=== PATIENT | male | born 1980 | race Caucasian/White ===

== ENCOUNTER 2019-05-29 08:01 | Emergency (ER) | payer OTHER, BC, SELFPAY ==
[2019-05-29 08:09] VITALS: PULSE 115; RESP 18; TEMP 36.8; O2SAT 96; BMI 29.8
--- NOTE | 2019-05-29 08:26 | ED_ITS ---
HPI - GI Bleed General Chief complaint: GI Bleed Stated complaint: Blood in stool Time Seen by Provider: 05/29/19 08:08 Source: patient Mode of arrival: ambulatory Limitations: no limitations History of Present Illness HPI Narrative: Patient comes emergency department complaining of red blood per rectum for his last 3 bowel movements. Patient states that yesterday, he felt the urge to defecate, and when he looked in the bowl of the toilet, he noticed a ?clump? of dark red blood. Patient states that he also noticed some blood dripping out just afterward into the toilet bowl. Patient states that there was no bleeding in between bowel movements, but that the next time he had a bowel movement, he passed another set of clots and blood. Patient states that this morning, he felt the urge to have a bowel movement but only blood came. He states that this time, it was mixed with mucus and it was a smaller amount than last night. Patient states he has never had anything like this before. He states he has had some vague, crampy low abdominal pain but otherwise has been feeling well. He does note that he has been constipated for quite some time, and that his stools have been hard in consistency. Patient states he takes stool softeners and also he feels he gets plenty of fruits and vegetables to eat. Patient denies any anticoagulation, and has no bleeding disorders that he knows of. He has not been bruising more easily recently. Patient denies any nausea or vomiting. No diarrhea. He has not had any fevers. He is not known to have diverticulosis. No history of colon cancer. No surgeries on his abdomen. No recent trauma. No pain with defecation. No blood in his urine. No melena. No known disorders of the patient's colon. Patient has never had a diagnosis of hemorrhoids. No other complaints at this time. Patient states he is feeling ?fine? right now. Related Data Home Medications Medication Instructions Recorded Confirmed buprenorphine-naloxone [Suboxone] 1 film BUCCAL BID 05/29/19 05/29/19 bupropion HCl 300 mg PO QAM 05/29/19 05/29/19 hydrochlorothiazide 1 tab PO DAILY 05/29/19 05/29/19 lovastatin 1 tab PO DAILY 05/29/19 05/29/19 pantoprazole 1 tab PO DAILY 05/29/19 05/29/19 testosterone cypionate 1 dose IM DIRECTED 05/29/19 05/29/19 Allergies Allergy/AdvReac Type Severity Reaction Status Date / Time lorazepam [From Ativan] Allergy Verified 05/29/19 08:09 Review of Systems Constitutional Denies chills, Denies fever(s), Denies lethargy and Denies weakness Eyes Denies change in vision, Denies eye discharge, Denies irritation and Denies loss of vision ENT Ears, Nose, Mouth, and Throat: Denies change in voice, Denies neck pain and Denies sore throat Cardiovascular Denies chest pain, Denies irregular heart rhythm, Denies lightheadedness, Denies palpitations, Denies dyspnea, Denies dyspnea on exertion and Denies orthopnea Respiratory Denies cough, Denies dyspnea, Denies dyspnea on exertion and Denies wheezing Gastrointestinal Gastrointestinal: Denies abdominal pain, Denies change in bowel habits, Denies diarrhea, Denies nausea and Denies vomiting Comments: Rectal bleeding Genitourinary Denies hematuria, Denies flank pain, Denies urinary incontinence and Denies urinary urgency Musculoskeletal Denies neck pain Integumentary/Breasts Denies pruritus, Denies erythema, Denies rash and Denies wounds Neurologic Denies confusion, Denies loss of vision and Denies weakness Psychiatric Denies anxiety, Denies confusion, Denies depression, Denies homicidal ideation and Denies suicidal ideation Endocrine Denies palpitations Hematologic/Lymphatic Denies easy bruising Allergic/Immunologic Denies wheezing PFSH Medical History HTN (hypertension) (Acute) Surgical History No pertinent past surgical history (Acute) Social History Smoking Status: Never smoker Social History Smoking Status: Never smoker Exam Initial Vital Signs Initial Vital Signs: Vital Signs Temperature 98.2 F 05/29/19 08:09 Pulse Rate 115 H 05/29/19 08:09 Respiratory Rate 18 05/29/19 08:09 Pulse Oximetry 96 05/29/19 08:09 Const General: cooperative and well developed Nutritional Appearance: well nourished Orientation: alert, awake, oriented x3 and not confused [facility] Head: normocephalic and atraumatic Ears: external ears normal Nose: external nose normal and No nasal discharge Face and sinus: face symmetric and No dry mucous membranes Mouth: oral mucosae normal and moist mucous membranes Teeth and gingiva: dentition normal Eyes General: appearance normal, both eyes and all related structures Eyelids: eyelids normal Conjunctivae: conjunctivae normal Sclera: sclerae normal Pupils: PERRL EOM: EOM intact bilaterally Neck Neck: normal visual inspection, trachea midline, No lymphadenopathy, No midline deformity and No JVD Lymphatic: No lymphedema Chest Chest: normal inspection of the chest Resp Effort & Inspection: normal respiratory effort, able to speak in complete sentences, no respiratory distress and no use of accessory muscles Auscultation: clear to auscultation bilaterally, no rales, no rhonchi and no wheezes Cardio Rate: regular rate Rhythm: regular rhythm Heart Sounds: no click, no gallops, no murmurs and no rubs Pulses: normal peripheral pulses GI Inspection: non-distended Palpation: soft, no hepatosplenomegaly, No guarding, No pulsatile mass and tender (Mild, diffuse lower abdomen) Rectal Exam: visual inspection normal and normal sphincter tone Other: No stool is obtained on rectal exam--only a slight bit of mucus material with blood tinging, which tests strongly guaiac positive. Back/Spine/Pelvis Back: No CVA tenderness Cervical Spine: cervical ROM normal and No pain with cervical ROM Thoracic/Lumbar Spine: thoracic and lumbar spine normal to inspection Skin General: no rashes or lesions noted, No jaundice and No petechiae Neuro General: alert, oriented x3, gait normal and no focal motor deficits Speech: speech normal Extrem General: full ROM, no clubbing, cyanosis or edema, no pedal edema and no calf tenderness Psych Appearance: well kempt Mental Status: mental status grossly normal Attitude: cooperative Thought Content: normal and suicidality Judgment: judgment good Course Course Narrative: Patient was worked up with laboratory studies and CT scan in the emergency department. Laboratory studies were unremarkable, other than a moderately elevated glucose, but the patient's CT scan did show a section of the descending colon with thickened bowel wall, concerning for a colonic mass. I did discuss this finding with Dr. Man, who is on-call for surgery, and he recommended that the patient follow up urgently with Surgery Clinic this week, preferably before the holiday. We did call the surgery clinic and set up an appointment for the patient to see Dr. Huff this afternoon at 1515. I have discussed this with the patient, and have urged him not to miss this appointment. He has been informed of his findings and the potential implications. Patient is agreeable to the plan. We have discussed the usual indications for return to the emergency department. Orders Ordered: ED Orders 05/29/19 08:35 Complete Blood Count AUTO DIFF Stat Comprehensive Metabolic Panel Stat 05/29/19 10:20 CT abdomen pelvis w con Stat Vital Signs - 8 hr 05/29/19 08:09 05/29/19 10:18 Temperature 98.2 F Pulse Rate 115 H 92 H Respiratory Rate 18 16 Blood Pressure [Left Arm] 120/80 Pulse Oximetry 96 98 MDM - GI Bleed Medical Records Attestation: I reviewed the patient's medical records. Lab Data Attestation: I reviewed the patient's lab results. Result diagrams: 05/29/19 08:35 05/29/19 08:35 Lab Results 05/29/19 05/29/19 Range/Units 08:35 08:35 WBC 9.6 (4.5-11.0) X10^3/uL RBC 5.26 (4.5-5.9) X10^6/uL Hgb 17.0 (13.5-17.5) g/dL Hct 48.5 (41-53) % MCV 92.2 (80-100) fL MCH 32.3 (26-34) PG MCHC 35.1 (30-36) % RDW 12.7 (11.6-14.8) % Plt Count 238 (150-400) X10^3/uL Neut % (Auto) 68.3 (50-75) % Lymph % (Auto) 21.1 L (25-40) % [place] % (Auto) 8.7 (3-14) % Eos % (Auto) 1.4 L (2-4) % Baso % (Auto) 0.5 (0-2) % Neut # (Auto) 6600 (2175-6431) /uL Lymph # (Auto) 2000 (7988-9696) /uL [place] # (Auto) 800 (0-900) /uL Eos # (Auto) 100 (0-450) /uL Baso # (Auto) 100 (0-100) /uL Sodium 138 (137-145) mmol/L Potassium 3.8 (3.4-5.1) mmol/L Chloride 98 (98-107) mmol/L Carbon Dioxide 28 (22-32) mmol/L BUN 19 (9-20) mg/dL Creatinine 1.00 (0.66-1.25) mg/dL Estimated GFR > 60.0 (>60) mL/min BUN/Creatinine Ratio 19.0 (6-22) Glucose 176 H (70-100) mg/dL Calcium 9.2 (8.4-10.2) mg/dL Total Bilirubin 0.8 (0.2-1.3) mg/dL AST 38 (17-59) IU/L ALT 33 (21-72) IU/L Alkaline Phosphatase 103 (38-126) U/L Total Protein 7.8 (6.3-8.2) g/dL Albumin 4.7 (3.5-5.0) g/dL Globulin 3.1 (1.7-4.1) g/dL Albumin/Globulin Ratio 1.5 (1.0-2.8) Imaging Data CT scan - abdomen: Radiologist's impression: PROCEDURE: CT ABDOMEN PELVIS W CON INDICATIONS: lower GI bleeding/clotting TECHNIQUE: After the administration of oral and intravenous contrast, 5 mm thick sections acquired from the diaphragms to the symphysis. 5 mm thick coronal and sagittal reformats were performed. For radiation dose reduction, the following was used: automated exposure control, adjustment of mA and/or kV according to patient size. COMPARISON: None. FINDINGS: Image quality: Excellent. ABDOMEN: Lung bases: Lung bases are clear. Heart size is normal. Solid organs: The liver is normal in size and demonstrates mild decreased density when compared to the spleen. No focal liver lesions are evident. There is no intrahepatic biliary dilatation. However, the common bile duct measures 8 mm in diameter near the head of the pancreas. The spleen, adrenals, pancreas, and kidneys are unrem arkable. There is no hydronephrosis. Peritoneum and bowel: The stomach is unremarkable. The small bowel loops are nondilated. Moderate residual stool is seen within the colon. The appendix is well- visualized and normal. Mild prominence of the wall of the distal colon probably is related to incomplete distention. There is wall thickening identified involving the mid aspect of the descending colon with minimal edema within the adjacent soft tissues (image 37, series 2). The colon and distal to this area of circumferential wall thickening is decompressed. No free fluid, loculated fluid collection or free air is identified. Nodes and vessels: No retroperitoneal or mesenteric adenopathy. Aorta and inferior vena cava are normal in caliber. Bones: No acute fracture or suspicious osseous lesion is evident. PELVIS: Genitourinary: Bladder wall thickness is normal. Miscellaneous: No inguinal hernias or adenopathy. Bones: No suspicious bony lesions. No acute pelvic fracture is evident. Moderate degenerative changes are evident involving the bilateral hips (left greater than right). IMPRESSION: 1. Circumferential wall thickening of the mid descending colon is suspicious for a colonic mass, particularly given the patient's history of rectal bleeding and the large amount of stool proximal to this lesion and lack of intraluminal stool distal to this lesion. Colonoscopy is recommended for further evaluation. 2. No bowel obstruction. 3. Enlargement of the common bile duct is unusual for the patient's age. Please consider MRCP for further evaluation. 4. Moderate degenerative changes of the bilateral hips. 5. Possible mild hepatic steatosis. Dictated by: Toby Dos Santos M.D. on 05/29/2019 at 9:37 Approved by: Toby Dos Santos M.D. on 05/29/2019 at 10:05 Discharge Plan Departure Patient Disposition: Home Clinical Impression: Acute lower gastrointestinal bleeding, Colonic mass Instructions: Gastrointestinal Bleeding Activity Restrictions/Additional Instructions: Your labs look good, overall. Your CT scan showed a thickened area of bowel wall in the latter part of your large intestine, which is causing some mild backup of stool. This is concerning for potential colon cancer, and as such, your case has been discussed with the surgeon ergonomic specialist, who has recommended that he be seen this week in their clinic. We have called the clinic, and you have an appointment with Dr. Huff this afternoon at 3:15 p.m.. Please do not miss this appointment, as it is important that you be seen as soon as possible for definitive diagnosis and management of this condition. Referrals: Kojo Caballero MD [Physician] - (Please follow up at 3:15 this afternoon, as you have been scheduled to do.)
[2019-05-29 09:07] LABS: Add Manual Diff / Slide Review NO; Basophils Absolute Auto 100 /uL (0-100); Basophils Percent Auto 0.5 % (0-2); Eosinophils Absolute Auto 100 /uL (0-450); Eosinophils Percent Auto 1.4 % (2-4); Hematocrit 48.5 % (41-53); Lymphocytes Absolute Auto 2000 /uL (1100-4500); Lymphocytes Percent Auto 21.1 % (25-40); Mean Corpuscular HGB Conc 35.1 % (30-36); Mean Corpuscular Hemoglobin 32.3 PG (26-34); Mean Corpuscular Volume 92.2 fL (80-100); Monocytes Absolute Auto 800 /uL (0-900); Monocytes Percent Auto 8.7 % (3-14); Neutrophils Absolute Auto 6600 /uL (1500-7000); Neutrophils Percent Auto 68.3 % (50-75); Platelet Count 238 X10^3/uL (150-400); Red Blood Cell Count 5.26 X10^6/uL (4.5-5.9); Red Cell Distribution Width 12.7 % (11.6-14.8); White Blood Cell Count 9.6 X10^3/uL (4.5-11.0)
[2019-05-29 09:18] LABS: Alanine Aminotransferase 33 IU/L (21-72); Albumin 4.7 g/dL (3.5-5.0); Albumin Globulin Ratio 1.5 (1.0-2.8); Alkaline Phosphatase 103 U/L (38-126); Aspartate Aminotransferase 38 IU/L (17-59); Bilirubin Total 0.8 mg/dL (0.2-1.3); Blood Urea Nitrogen 19 mg/dL (9-20); Calcium 9.2 mg/dL (8.4-10.2); Carbon Dioxide 28 mmol/L (22-32); Chloride 98 mmol/L (98-107); Estimated Glomerular Filt Rate > 60.0 mL/min (>60); Globulin 3.1 g/dL (1.7-4.1); Glucose 176 mg/dL (70-100); HEMOLYSIS 24 (0-50); Potassium 3.8 mmol/L (3.4-5.1); Sodium 138 mmol/L (137-145); Total Protein 7.8 g/dL (6.3-8.2)
[2019-05-29 10:18] VITALS: BP 120/80; PULSE 92; RESP 16; O2SAT 98
--- NOTE | 2019-05-29 10:20 | DI.CT.S_ITS ---
PROCEDURE: CT ABDOMEN PELVIS W CON INDICATIONS: lower GI bleeding/clotting TECHNIQUE: After the administration of oral and intravenous contrast, 5 mm thick sections acquired from the diaphragms to the symphysis. 5 mm thick coronal and sagittal reformats were performed. For radiation dose reduction, the following was used: automated exposure control, adjustment of mA and/or kV according to patient size. COMPARISON: None. FINDINGS: Image quality: Excellent. ABDOMEN: Lung bases: Lung bases are clear. Heart size is normal. Solid organs: The liver is normal in size and demonstrates mild decreased density when compared to the spleen. No focal liver lesions are evident. There is no intrahepatic biliary dilatation. However, the common bile duct measures 8 mm in diameter near the head of the pancreas. The spleen, adrenals, pancreas, and kidneys are unremarkable. There is no hydronephrosis. Peritoneum and bowel: The stomach is unremarkable. The small bowel loops are nondilated. Moderate residual stool is seen within the colon. The appendix is well-visualized and normal. Mild prominence of the wall of the distal colon probably is related to incomplete distention. There is wall thickening identified involving the mid aspect of the descending colon with minimal edema within the adjacent soft tissues (image 37, series 2). The colon and distal to this area of circumferential wall thickening is decompressed. No free fluid, loculated fluid collection or free air is identified. Nodes and vessels: No retroperitoneal or mesenteric adenopathy. Aorta and inferior vena cava are normal in caliber. Bones: No acute fracture or suspicious osseous lesion is evident. PELVIS: Genitourinary: Bladder wall thickness is normal. Miscellaneous: No inguinal hernias or adenopathy. Bones: No suspicious bony lesions. No acute pelvic fracture is evident. Moderate degenerative changes are evident involving the bilateral hips (left greater than right). IMPRESSION: 1. Circumferential wall thickening of the mid descending colon is suspicious for a colonic mass, particularly given the patient's history of rectal bleeding and the large amount of stool proximal to this lesion and lack of intraluminal stool distal to this lesion. Colonoscopy is recommended for further evaluation. 2. No bowel obstruction. 3. Enlargement of the common bile duct is unusual for the patient's age. Please consider MRCP for further evaluation. 4. Moderate degenerative changes of the bilateral hips. 5. Possible mild hepatic steatosis. Dictated by: Toby Dos Santos M.D. on 05/29/2019 at 9:37 Approved by: Toby Dos Santos M.D. on 05/29/2019 at 10:05
[2019-05-29 11:11] VITALS: BP 128/71; PULSE 89; RESP 16; O2SAT 98
[2019-05-29 12:01] VITALS: BP 122/69; PULSE 87; RESP 16; O2SAT 98
== END 2019-05-29 12:15 | disposition home or self-care (01) ==
PROVIDERS: Emergency Provider Emergency Medicine
DX: K92.2 Gastrointestinal hemorrhage, unspecified (principal); K63.9 Disease of intestine, unspecified
CPT/HCPCS: 36591; 74177; 80053; 85025; 99283; 99284; Q9967

== ENCOUNTER 2019-05-30 11:29 | Day surgery (SDC) | payer BC, SELFPAY ==
[2019-05-30] VITALS (9 sets, daily range): BP systolic 111–142; BP diastolic 71–98; PULSE 74–95; RESP 12–95; TEMP 36.3–36.7; O2SAT 14–99; BMI 27.4
--- NOTE | 2019-05-30 | PATH_ITS ---
[facility] Accession Number: [id number] . 01 Material submitted: . PART A: colon - LEFT COLON MASS PART B: ileum - TERMINAL ILEUM MUCOSAL BIOPSY . 02 Diagnosis: A. Left Colon, Mass, Biopsy: Fragments of colonic mucosa with ischemia-type changes. Please see comment. Negative for granulomas, dysplasia and malignancy. . B. Terminal Ileum, Biopsy: Small bowel mucosa with no diagnostic abnormality. Negative for active inflammation, dysplasia and malignancy. MRV/06/01/2019 . 02 Comment: Part A: The differential diagnosis includes ischemia due to trauma/prolapse, true vascular ischemia, and ischemia due to infection (i.e., enterohemorrhagic E. coli, C. difficile, etc.). The endoscopic appearance of a mass is noted. There is no atypia, epithelial dysplasia or malignancy in these biopsies; endoscopic correlation is recommended. . 02 Electronically signed: . Isa Suarez MD, Pathologist NPI- [id number] . 01 Gross description: . Part A: LEFT COLON MASS: Received in formalin are multiple fragment(s) of malin, soft tissue measuring 0.1 x 0.1 x 0.1 cm to 0.3 x 0.2 x 0.2 cm which is entirely submitted and submitted entirely in 1 cassette(s) Part B: TERMINAL ILEUM MUCOSAL BIOPSY: Received in formalin are 3 fragment(s) of malin, soft tissue measuring 0.2 x 0.2 x 0.2 cm to 0.6 x 0.2 x 0.1 cm which is entirely submitted and submitted entirely in 1 cassette(s) /DMC /DM . 02 Pathologist provided ICD-10: K55.9 . 02 CPT . 775466, [id number] Performed at: 01 [facility] [address] [place] [address], [place], [place] [id number] MD Marcos Chou MD Phone: [phone] Performed at: [address] [facility] [address] [place], [place] [id number] MD Isa Suarez MD Phone: [phone]
[2019-05-30] MEDS: SODIUM CHLORIDE 0.9% 1,000 ML 200 ML IV (11:55)
--- NOTE | 2019-05-30 11:56 | PM.HP.1 ---
History of Present Illness Date Patient Seen: 05/30/19 Time Patient Seen: 11:57 Chief complaint: [id number] Narrative: pt seen and examined unchanged from clinic note yesterday Patient History Medical History (Updated 05/29/19 @ 11:46 by Brittany Browne MD) HTN (hypertension) (Acute) Surgical History (Updated 05/29/19 @ 16:03 by Joan Valentin, RN) Hx of hand surgery (Resolved) Hx of knee surgery (Resolved) Hx of shoulder surgery (Resolved) Hx of vasectomy (Resolved) No pertinent past surgical history (Inactive) Family History (Updated 05/29/19 @ 16:04 by Joan Valentin RN) Grandfather Diabetes mellitus Heart disease Grandmother Diabetes mellitus Stroke Social History (Updated 05/29/19 @ 16:05 by Joan Valentin RN) marital status: household members: spouse occupational status: employed Smoking Status: Never smoker alcohol intake: current substance use type: does not use Family & Social History Family History (Updated 05/29/19 @ 16:04 by Joan Valentin RN) Grandfather Diabetes mellitus Heart disease Grandmother Diabetes mellitus Stroke Social History: household members spouse Tobacco & Substance use: Smoking Status Never smoker alcohol intake current Substance Use Type does not use Meds Home Medications Medication Instructions Recorded Confirmed Type buprenorphine-naloxone [Suboxone] 1 film BUCCAL BID 05/29/19 05/29/19 History bupropion HCl 300 mg PO QAM 05/29/19 05/29/19 History hydrochlorothiazide 1 tab PO DAILY 05/29/19 05/29/19 History lovastatin 1 tab PO DAILY 05/29/19 05/29/19 History pantoprazole 1 tab PO DAILY 05/29/19 05/29/19 History testosterone cypionate 1 dose IM DIRECTED 05/29/19 05/29/19 History Allergies Allergy/AdvReac Type Severity Reaction Status Date / Time lorazepam [From Ativan] Allergy Verified 05/29/19 15:53
--- NOTE | 2019-05-30 14:43 | SUR.PHASEII ---
1344 To OPD, called to bedside. Patient hopeful that he might not have colon cancer, states that his mother has ulcerative colitis. Instructions reviewed with patient and . Questions answered. Resp unlabored, skin warm and dry.
--- NOTE | 2019-05-30 14:49 | SUR.PHASEII ---
Addendum entered by Lucia Muir R.N. 05/30/19 16:05: as relayed to myself Addendum entered by Lucia Muir R.N. 05/30/19 14:51: Note from 1344 as related to myself. Original Note: 1415 assumed care from Jory Manning RN.
--- NOTE | 2019-05-30 15:44 | PM.OP.ENDO ---
Operative Date/Time/Diagnoses Date of procedure: 05/30/19 Time of procedure: 13:30 Pre-op diagnosis: Partially obstructing left colon mass Post-op diagnosis: same Procedure & Clinicians Study performed: Colonoscopy-complete Cold biopsy and Tattooing of left colon mass Intubation and biopsy of terminal ileum Same procedure as scheduled: Yes Indications: 39-year-old man who presented to the emergency department with rectal bleeding passing clots -CT scan demonstrated a partially obstructing mass in the left colon. He saw me in clinic yesterday. Reported some mild obstructive symptoms i.e. backed up but still passing flatus and stool. Booked urgently for colonoscopy for diagnosis. Surgeon: Kojo Caballero Procedure Notes SCOAP/Timeout: completed Procedure in detail: Patient was brought to the operating room he was sedated without inset. An anesthesiologist was required for the patient's sedation for 3 salient reason -patient is on chronic Suboxone limiting the effectiveness of fentanyl as a sedative/analgesia. Patient has an allergy to some benzodiazepine. In addition given partially obstructing nature of the mass I expected a difficult colonoscopy. Once adequately sedated on a propofol pump -a digital rectal exam was performed. No masses. Normal size prostate. 160 cm colonoscope was introduced through the it navigated through the folds of the rectum through the rectosigmoid junction and through the sigmoid colon itself. Passing the the colonoscope up through the left colon-a nodular friable tissue mass was encountered, it had a bulbous textured hyper glandular surface. This was circumferentially. It was partially obstructing -not near obstructing however. Later it permitted the colonoscope to pass through it without much difficulty. Multiple biopsies were taken of the obstructing mass. The colonoscope was advanced past the mass to the cecum. Cecum was readily identified with a gross foot, appendiceal orifice, ileocecal valve. The ileum was intubated and several biopsies were taken from the terminal ileum to evaluate for Crohn's disease. The scope was then withdrawn. There were no additional synchronous lesions identified on the remainder of the mucosa inspected from cecum to anus. Withdrawing the scope the mass was noted to start at 45 cm and extend 35 cm. Four quadrants were tattooed using Haydee ink placed in the submucosal space just distal to the mass. There is no diverticular disease Scope withdrawal time was over 12 minutes Patient tolerated the procedure well Prep was excellent
--- NOTE | 2019-05-30 16:07 | SUR.PHASEII ---
1418 Late entry: Stable, appreciative of care; Questions answered. Resp unlabored, skin warm and dry. Ready for discharge.
== END 2019-05-30 14:18 | disposition home or self-care (01) ==
PROVIDERS: Visit Provider Surgery
PROC: 0DJD8ZZ Inspection of Lower Intestinal Tract, Via Natural or Artificial Opening Endoscopic (ICD-10-PCS; CPT 45378; principal; 2019-05-30 14:45)
DX: K55.9 Vascular disorder of intestine, unspecified (principal); I10 Essential (primary) hypertension
CPT/HCPCS: 45381; 45380; J2704

== ENCOUNTER 2019-06-05 10:00 | Inpatient (IN) | payer BC, SELFPAY ==
[2019-06-05 10:22] VITALS: BP 162/99; PULSE 78; RESP 20; TEMP 36.6; O2SAT 99
--- NOTE | 2019-06-05 10:42 | PC.ADMIT ---
Admission Note: Patient a direct admit from Dr. Caballero's office. Walked independently into ICU unit and to room 106. Oriented to room and to bed/tv/call light controls. Assessed at low fall risk - independent in room. Declines to lock up valuables at this time (wallet and phone), states he will send wallet home with his when she gets here. Clothing in room closet. Bilateral contacts in place per pt, glasses to be brought by . Reports abdominal pain 02/04, tender. Last BM 05/31. Last ate yesterday at 5pm. Denies nausea. Consent is on chart. Call light within reach. The patient,Marcos Ventura,39 y/o, was given written information regarding hospital policies, unit procedures and contact persons. Patient's smoking status: Never smoker. Vital Signs - 8 hr 06/05/19 10:22 Temperature 97.9 F Pulse Rate 78 Respiratory Rate 20 Blood Pressure 162/99 H Pulse Oximetry 99
[2019-06-05 10:50] VITALS: BMI 28.0
[2019-06-05 12:05] LABS: Add Manual Diff / Slide Review NO; Basophils Absolute Auto 100 /uL (0-100); Basophils Percent Auto 0.7 % (0-2); Eosinophils Absolute Auto 100 /uL (0-450); Eosinophils Percent Auto 0.9 % (2-4); Hematocrit 46.2 % (41-53); Hemoglobin 16.3 g/dL (13.5-17.5); Lymphocytes Absolute Auto 2200 /uL (1100-4500); Lymphocytes Percent Auto 29.4 % (25-40); Mean Corpuscular HGB Conc 35.4 % (30-36); Mean Corpuscular Hemoglobin 32.2 PG (26-34); Monocytes Absolute Auto 600 /uL (0-900); Neutrophils Absolute Auto 4700 /uL (1500-7000); Platelet Count 291 X10^3/uL (150-400); Red Blood Cell Count 5.08 X10^6/uL (4.5-5.9); Red Cell Distribution Width 12.9 % (11.6-14.8); White Blood Cell Count 7.6 X10^3/uL (4.5-11.0)
[2019-06-05 12:21] LABS: BUN Creatinine Ratio 16.3 (6-22); Blood Urea Nitrogen 13 mg/dL (9-20); Calcium 9.4 mg/dL (8.4-10.2); Carbon Dioxide 30 mmol/L (22-32); Chloride 98 mmol/L (98-107); Estimated Glomerular Filt Rate > 60.0 mL/min (>60); Glucose 123 mg/dL (70-100); HEMOLYSIS < 15 (0-50); Magnesium 2.1 mg/dL (1.6-2.3); Potassium 4.1 mmol/L (3.4-5.1); Sodium 137 mmol/L (137-145)
[2019-06-05] MEDS: DEXTROSE 5%-0.45% NS 1,000 ML 100 ML IV ×2 (12:47→22:01)
[2019-06-05] MEDS: HEPARIN 5,000 UNIT/ML VIAL 5000 UNIT SUBCUT ×2 (15:29→21:54)
[2019-06-05 15:34] VITALS: BP 138/89; PULSE 69; RESP 20; TEMP 36.3; O2SAT 98
--- NOTE | 2019-06-05 16:11 | PC.NURSE ---
Addendum entered by Zayda Howell R.N. 06/05/19 21:04: 2100 - Pt reports having a medium, hard BM. Reports pain to left side of abd have improved with BM, however bowel prep is causing nausea. Encourage pt to slow PO intake, including bowel prep. Pt verbalized understanding. Monitor. Addendum entered by Zayda Howell R.N. 06/05/19 18:38: 1835 - Pt sitting up in a chair. Educated to bowel prep, po meds and dietary orders. Reinforced need for pt to stop bowel prep and notify staff with increased abd pain. Pt verbalized understanding. Call light in reach. Original Note: 1600 - Pt requesting to eat and drink. Educated to bowel obstruction and bowel rest. Pt states that he is feeling hungry. Having not eaten since yesterday. Discussed surgeons plan to round this evening. Pt states by then I will have missed dinner. Call placed to [facility]. Elke, reports having sent message to surgeon r/t pt request. Pt up independently in room. Supportive at bedside. Denies nausea. Reports mild left side abd pain. Monitor.
[2019-06-05] MEDS: ACETAMINOPHEN 325 MG TABLET 650 MG PO (17:03)
--- NOTE | 2019-06-05 17:55 | PM.HP.1 ---
History of Present Illness Date Patient Seen: 06/05/19 Time Patient Seen: 11:00 Chief complaint: SBO Narrative: 39-year-old man without family history of colorectal cancer on Suboxone for chronic joint pain presents in clinic today after recent colonoscopy 6 days ago with no passage of stool in this time and increasing abdominal distention. Briefly pt was worked up for rectal bleed passing bright blood and also dark clot. CT scan at the time showed a sort segment stricture in the proximal L colon. Upon further history reports rabbit pellet-like stools for the last 4 years with some difficulty evacuating. Over last few months he has felt progressively backed up with stool as if much of his abdomen is full of it. Colonoscopy demonstrated a 10cm segment of narrowing with inflammatory and irregular mucosa /annular poorly organized mass - this was biopsied multiple times, the terminal ileum was biopsied as well. This demonstrated no neoplasm only ischemic type mucosal changes. There was no disease including crohns on the TI samples. The colon was tattooed distal to the obstruction. Today pt reports passing flatus but without BM and incressing bloating. There is focal pain in the L side at the area of stricture. Feels poorl Patient History Medical History (Updated 05/30/19 @ 12:07 by Lucia Muir RN) HTN (hypertension) (Acute) Gastric reflux (Acute) Sleep apnea (Acute) Surgical History (Updated 05/30/19 @ 12:03 by Lucia Muir RN) Hx of hand surgery (Resolved) Hx of knee surgery (Resolved) Hx of shoulder surgery (Resolved) Hx of vasectomy (Resolved) No pertinent past surgical history (Inactive) Family History (Updated 05/29/19 @ 16:04 by Joan Valentin RN) Grandfather Diabetes mellitus Heart disease Grandmother Diabetes mellitus Stroke Social History (Updated 05/29/19 @ 16:05 by Joan Valentin RN) marital status: household members: spouse occupational status: employed Smoking Status: Former smoker alcohol intake: current substance use type: does not use Family & Social History Family History (Updated 05/29/19 @ 16:04 by Joan Valentin RN) Grandfather Diabetes mellitus Heart disease Grandmother Diabetes mellitus Stroke Social History: household members spouse Prior Living Arrangements House Safety & Behavioral: Feels Safe in Current Yes Environment Been Physically Hurt or No Threatened By a Person Suicidal Ideation Description None Suicide Plan Description No Plan Tobacco & Substance use: Tobacco type cigarettes Smoking Status Former smoker alcohol intake current alcohol intake frequency 0-2 drinks per day Substance Use Type does not use Meds Home Medications Medication Instructions Recorded Confirmed Type buprenorphine-naloxone [Suboxone] 1 film BUCCAL BID 05/29/19 06/05/19 History bupropion HCl 300 mg PO QAM 05/29/19 06/05/19 History hydrochlorothiazide 25 mg PO DAILY 05/29/19 06/05/19 History pantoprazole 40 mg PO DAILY 05/29/19 06/05/19 History testosterone cypionate 1 dose IM DIRECTED 05/29/19 06/05/19 History atorvastatin 20 mg PO DAILY 05/30/19 06/05/19 History Allergies Allergy/AdvReac Type Severity Reaction Status Date / Time lorazepam [From Ativan] AdvReac Severe Hospitalized Verified 06/05/19 09:40 x1wk Review of Systems Constitutional Constitutional: Denies fever(s) Eyes Eyes: Denies bulging eyes ENT Ears, Nose, Mouth, and Throat: No lip swelling Cardiovascular Cardiovascular: Denies generalize swelling Respiratory Respiratory: Denies stridor Gastrointestinal Gastrointestinal: Denies coffee ground emesis Musculoskeletal Musculoskeletal: Denies loss of height Integumentary/Breasts Skin/Breast: Denies wounds Neurologic Neurologic: Denies abnormal speech and Denies confusion Psychiatric Psychiatric: Denies confusion Endocrine Endocrine: Denies deepening of the voice Hematologic/Lymphatic Hematologic/Lymphatic: Denies lymphadenopathy Allergic/Immunologic Allergic/Immunologic: Denies lip swelling Exam Vital Signs (past 8 hours): - 06/05/19 10:22 06/05/19 15:34 Temperature 97.9 F 97.4 F L Pulse Rate 78 69 Respiratory Rate 20 20 Blood Pressure 162/99 H 138/89 Pulse Oximetry 99 98 Oxygen Flow Rate 0 Const General: cooperative and healthy appearing Orientation: alert HENNC Head: normal to inspection Nose: nares normal Mouth: oral mucosae normal and lip normal Eyes Eyelids: eyelids normal Conjunctivae: conjunctivae normal Sclera: sclerae normal Neck Neck: supple and other (No thyromegally) Chest Chest: other (LCTAB , regular respiratory effort) Cardio Rhythm: regular rhythm Heart Sounds: S1 normal, S2 normal, no gallops, no murmurs and no rubs GI Other: Abdomen moderately distended, moderately tender along left pericolic gutter, dull to percussion Skin General: no rashes or lesions noted Neuro General: alert and awake Psych Appearance: grossly normal Affect: normal affect Objective Labs Result Diagrams: 06/05/19 11:55 06/05/19 11:55 Labs: Laboratory Results - last 24 hr 06/05/19 06/05/19 06/05/19 10:20 11:55 11:55 WBC 7.6 RBC 5.08 Hgb 16.3 Hct 46.2 MCV 91.0 MCH 32.2 MCHC 35.4 RDW 12.9 Plt Count 291 Neut % (Auto) 61.0 Lymph % (Auto) 29.4 [place] % (Auto) 8.0 Eos % (Auto) 0.9 L Baso % (Auto) 0.7 Neut # (Auto) 4700 Lymph # (Auto) 2200 [place] # (Auto) 600 Eos # (Auto) 100 Baso # (Auto) 100 Sodium 137 Potassium 4.1 Chloride 98 Carbon Dioxide 30 BUN 13 Creatinine 0.80 Estimated GFR > 60.0 BUN/Creatinine Ratio 16.3 Glucose 123 H Calcium 9.4 Magnesium 2.1 Nasal Screen MRSA (PCR) Negative for mrsa Assessment & Plan Assessment & Plan narrative: 39 yo man s/p recent colonoscopy suggestive of an ischemic structure of the L colon now presents with no BM since colonoscopy 6 days ago. He is distended but passing flatus - I suspect an incomplete large bowel obstruction from progressive disease vs inflammation for recent biopsy of structure on colonoscopy. Plan: Admit to hospital Will plan on urgent colon resection tomorrow - Plan to try prep today with PEG and neomycin/erythromycin. However if increased pain will stop. NIKITA segmental colectomy - likely no neoplasia needing formal left colectomy His splenic flexure is quite high and a take down will provide ample length. I discussed possible need for ostomy, risk of bleeding, infection, injury to strutures including spleen, pancreas, ureter, stomach, bowel. I stress that given the urgent nature of the case and likely dialated proximal bowel may need end colostomy or diverting loop ileostomy. All questions answered Pt ready to proceed Quality VTE Deep Vein Thrombosis/Pulmonary Embolism Present on Admission: No
[2019-06-05] MEDS: PEG3350/SOD SULF,BICARB,CL/KCL 4,000 ML SOLUTION 4000 ML PO (18:18)
[2019-06-05] MEDS: NEOMYCIN 500 MG TABLET 1000 MG PO ×2 (18:19→21:54)
[2019-06-05] MEDS: ERYTHROMYCIN BASE 999 MG PO ×2 (18:19→21:54)
[2019-06-05 20:12] VITALS: BP 131/82; PULSE 79; RESP 20; TEMP 36.4
[2019-06-05] MEDS: ATORVASTATIN 20 MG TABLET PO (21:54)
[2019-06-06] VITALS (16 sets, daily range): BP systolic 122–166; BP diastolic 61–93; PULSE 69–93; RESP 10–18; TEMP 35.8–37; O2SAT 96–100; BMI 28.3
--- NOTE | 2019-06-06 | PATH_ITS ---
[facility] Accession Number: [id number] . 01 Material submitted: . colon - SEGMENT OF COLON . 01 Clinical history: . DOUBLE STITCH - DISTAL . 02 Diagnosis: Segment Of Colon, Resection: Segment of colon with small caliber (2.6 cm in diameter), compatible with stricture. Tattoo ink present, consistent with previous biopsy site. No evidence of ischemia or dysplasia, see comment. I06/12/2019 . 02 Comment: This case is reviewed in conjunction with the previous biopsy ([id number]). The ischemic-type mucosal changes seen in the previous biopsy are not appreciated in the resection specimen. Tattoo ink is present and sampled, suggesting interval improvement. . 02 Electronically signed: . Chilango Stringer MD, PhD, Pathologist NPI- [id number] . 01 Gross description: . Received in formalin, labeled with the patient's name and segment of colon, double stitch distal, is a previously opened segment of colon which is stapled at one end. Adjacent to the stapled end is a double suture designated on the requisition as distal. The segment of colon measures 9.3 cm in length by 2.6 cm in diameter and has a moderate amount of pericolonic fat. The serosa is smooth and the wall thickness averages 0.4 cm. The mucosa is malin-brown and well folded. No masses or lesions are grossly identified. A possible tattoo marking is identified in the mucosa. On sectioning, the submucosa in this area is blackened. Statistical Geneticist sections are submitted as follows: A1 - proximal resection margin en face; A2 - distal resection margin en face; A3-A4 - mucosa with blackened submucosa; A5 - normal mucosa. (RICARDA:[id number]) . The gross specimen was reviewed by Dr. Chilango Stringer on 06/08/2019. The mucosa shows normal intestinal folds without any gross evidence of ischemic change or atrophy. There are no gross lesions seen other than what is described above, and no additional material is submitted. /MRV . 02 Pathologist provided ICD-10: K56.600 . 02 CPT . 996032 Performed at: 01 [facility] [address] [address], [place], [place] [id number] MD Marcos Chou MD Phone: [phone] Performed at: [address] [facility] [id number] [place] [id number] MD Isa Suarez MD Phone: [phone]
[2019-06-06] MEDS: ERYTHROMYCIN BASE 999 MG PO (02:29)
[2019-06-06] MEDS: NEOMYCIN 500 MG TABLET 1000 MG PO (02:30)
[2019-06-06] MEDS: PANTOPRAZOLE 20 MG TABLET 40 MG PO (04:57)
[2019-06-06] MEDS: SUBOXONE 1 EACH SL (04:59)
--- NOTE | 2019-06-06 06:09 | PC.NURSE ---
Patient is A/Ox3, up independent in room and into BR, states he has had few small bowel movements, flushes, but states there is no blood NPO since midnight except meds, denies significant abdominal pain, declines scheduled Tylenol, but did request his usual scheduled am Suboxone, PO Protonix given early in am for mild nausea. SR/SA on telemetry, VSS.
[2019-06-06] MEDS: DEXTROSE 5%-0.45% NS 1,000 ML 100 ML IV (08:10)
[2019-06-06] MEDS: buPROPion SR 150 MG TAB 300 MG PO (08:11)
[2019-06-06] MEDS: ACETAMINOPHEN 325 MG TABLET 650 MG PO ×3 (08:13→23:56)
--- NOTE | 2019-06-06 08:58 | CM.DANOTE ---
DCP: Case received, EMR reviewed and met with patient. Introduced self and role. Baseline health information received from patient. DCP template assessment completed with information currently available. Patient is a 39 year old male who admitted yesterday morning to the care of the hospitalist/surgical team. PCP: Dr. Cruz-MO. Payer: confirmed: [facility]. Patient came to the hospital from his MD appt, secondary to abdominal discomfort, and no BM for several days. Patient had just recently had a colonoscopy, and has had complications since. Patient has history of colorectal CA. Patient may be having surgery. Met with patient in his room. Alert and oriented, independent. Confirmed that he lives in [place] with his spouse, Magda. He is currently employed with [employer], and [facility] P: DCP to follow for any needs. Unsure at this point if patient will need ostomy. Aurea De Paz RN/Patient Accounts Manager
--- NOTE | 2019-06-06 10:51 | PC.NURSE ---
Day Shift Note Patient to surgery at 1040 via bed. Glasses in place. Report given to Adrienne MOYER. Consent signed and in chart.
[2019-06-06] MEDS: LACTATED RINGERS 1,000 ML 42 ML IV ×2 (10:53→14:52)
--- NOTE | 2019-06-06 12:12 | PM.PN.1 ---
Subjective Date Patient Seen: 06/06/19 Time Patient Seen: 07:00 Interval history: minimal pain this am tolerated 1L of prep with passage of stool, now liquid and mostly clear. Feeling well Exam Vital Signs (past 8 hours): - 06/06/19 04:55 06/06/19 07:41 06/06/19 08:13 Temperature 96.4 F L 98.5 F Pulse Rate 75 74 Respiratory Rate 16 18 Blood Pressure 152/88 H 133/76 Pulse Oximetry 96 99 97 06/06/19 11:00 Temperature 97.4 F L Pulse Rate 76 Respiratory Rate 15 Blood Pressure 141/84 H Pulse Oximetry 100 Oxygen Delivery Method Room Air Oxygen Flow Rate 0 Narrative Exam Narrative: appears well abd soft, nontender, dull to percussion. Objective Labs Result Diagrams: 06/05/19 11:55 06/05/19 11:55 Labs: Laboratory Results - last 24 hr 06/05/19 06/05/19 10:20 11:55 Sodium 137 Potassium 4.1 Chloride 98 Carbon Dioxide 30 BUN 13 Creatinine 0.80 Estimated GFR > 60.0 BUN/Creatinine Ratio 16.3 Glucose 123 H Calcium 9.4 Magnesium 2.1 Nasal Screen MRSA (PCR) Negative for mrsa Assessment & Plan Assessment & Plan narrative: 39 yo man with near obstruction in L colon - benign stricture possible. No malignancy on recent biopsy Plan: segmental colectomy today Suspect will be able to do lap, given hx of difficulty managing pain would be significant advantage to him Quality VTE Deep Vein Thrombosis/Pulmonary Embolism Present on Admission: No
[2019-06-06] MEDS: CEFTRIAXONE 2 GM/50 ML FROZ.PIGGY IV (12:21)
[2019-06-06] MEDS: HEPARIN 5,000 UNIT/ML VIAL 5000 UNIT SUBCUT ×2 (12:25→20:42)
[2019-06-06] MEDS: metroNIDAZOLE 500 MG/100 ML PIGGYBACK 100 MG IV (12:35)
--- NOTE | 2019-06-06 12:49 | SUR.OPER ---
Lithotomy on padded OR bed. [place] Pad Positioner under torso. Head on pillow, arms padded and tucked at sides. Legs secured in padded yellow fins stirrups.
[2019-06-06] MEDS: BUPIVACAINE 0.25% W/ EPI 30 ML VIAL INJ (13:35)
[2019-06-06] MEDS: fentaNYL 100 MCG/2 ML INJ 50 MCG IV ×2 (17:04→17:15)
--- NOTE | 2019-06-06 17:18 | SUR.PHASEI ---
Arrived in PACU, sleeping, oral airway w\jaw thrust, resp unlabored, skin warm and dry, incisions CDI. Airway dc'd at 1654. Dr. Hutchinson present. O2 decreased to 2LNP. Urine cloudy. 171 O2 dc'd. See Emar for medication. Oriented, c/o need to have a BM, c/o intestinal cramping. 1724 Rx given for pain, patient complaining of needing to have a bowel movement; sitting on bedpan. RestOpal martinez RN present, assisting w/care & reassuring patient.
[2019-06-06] MEDS: HYDROMORPHONE 2 MG INJ 0.5 MG IV (17:22)
--- NOTE | 2019-06-06 17:33 | SUR.PHASEI ---
patient feels strongly that he needs to sit on a toilet to have a BM; explained that we have to keep him for 20 minutes after medication is given. Gave him the option of more medication or waiting and getting him to his room so that he can be up with assist. Unable to use bedpan. Is presently much calmer, asking about incisions, c/o gas pain. Resp unlabored, skin warm and dry. VSS.
--- NOTE | 2019-06-06 17:41 | P.OP_ITS ---
Operative Date/Time/Diagnoses Date of procedure: 06/06/19 Time of procedure: 16:30 Pre-op diagnosis: partially obstructing L colon mass Post-op diagnosis: same Procedure & Clinicians Procedure: Segmental laparoscopic left hemicolectomy, hand-sewn end-to-end colo colo anastomosis Laparoscopic mobilization of splenic flexure Same procedure as scheduled: Yes Indications: 39-year-old man presented to emergency department with rectal bleeding passing clots. CT scan demonstrated a proximal left colon stricture. He underwent recent colonoscopy which showed a partially obstructing stricture in the same location. This was tattooed and biopsied. Biopsy was notable for ischemic changes without malignancy. No other lesions identified. In addition during colonoscopy his terminal ileum was intubated with multiple biopsies taken, no evidence of Crohn's disease. Six days after his colonoscopy presented with no passage of stool for this time period and progressive bloating. He was moderately distended but did report passing flatus. He was felt to have a partial large bowel obstruction at the site of concern. He is admitted to the hospital with plans for colectomy the following day. He did tolerate a minimal amount of bowel prep. Surgeon: Kojo Caballero [employer] Salesperson: Leticia Olivarez Anesthesia Type: General Operative Notes Findings: Tattooed section of colon removed with 12-14cm of bowel proximal. Lesion opened on back table subtle mucosal erosions identified but w/o obvious pathology - Distal and proximal staple lines excised in intra- lumenal surfaces inspected for additional 6cm. No non-resected lesions identifed in these segments. Two layer colo-colo handsewn end to end anastomosis - marked radiographicly with clips Closure Type: primary Specimen(s): other (L colon) Estimated Blood Loss (mL): 50 Procedure in detail: Patient is brought to the operating room his intubated without incident. History prepped and draped in the usual sterile fashion and time-out was completed. Entry into the abdomen was performed using a Veress needle technique. A small wheal of local anesthetic was raised at nesbitt's point on the left abdomen. The Veress needle was advanced into the peritoneal space with a distinct click, upon aspiration there was no succus or blood in there was a confirmatory saline drop test. Early insufflation pressures were low. The abdomen was insufflated to 15 mm of mercury. A vertically oriented incision was placed just superior to the umbilicus through this a 5 mm port was advanced visualizing all layers of the abdominal wall using utilizing Visiport technique. The dark space of the insufflated abdomen was entered without difficulty. I inspected the Veress needle entry site there was no injury or bleeding and the needle was removed without difficulty. Inspecting the abdomen there was not significant bowel dilation. And indeed the patient has significant distention from the day prior had been resolved clinically just prior to the operating room. As a consequence I felt it was reasonable to continue to proceed laparoscopically since there was adequate domain to work with. At this point an additional 4 total 5 mm ports were placed: 2 in the right lower quadrant, 1 in the right upper quadrant, and 1 at the level of the umbilicus on the left side. We initially started with mobilizing the lateral sigmoid colon. The sigmoid colon was retracted medially putting on tension several epiploic/inflammatory adhesions to the lateral sidewall these were divided easily with Bovie cautery. I then incised along the white line of Toldt mobilizing the sigmoid colon and left colon moving proximally along the plane between the mesentery and the retroperitoneal structures. I did inadvertently create a window in the left mesentery. This however did not involve any mesenteric vessels. I returned to the correct plane and continued to move along up towards the the splenic flexure. Of note the tattooed segment of bowel was readily identified in the proximal left colon approximately 15cm from the splenic flexure. Which was quite high.. At this point at the level of the midtransverse colon the omentum was retracted cephalad and the transverse colon retracted inferiorly. The lesser sac was entered by dividing the omentum off the transverse colon. During the course of this there was several areas of bleeding. One was quite close to the colon wall and I did not feel comfortable using an energy device on this. As a consequence it was grasped with a [place] and a 5 mm clip was placed. There is good hemostasis. Using a ultrasound renea -the greater omentum was reflected off of the transverse colon without further difficulty moving from proximal to distal. At this point the splenic flexure was well visualized -the splenocolic ligament was divided without difficulty and we continued to mobilize the splenic flexure utilizing the embryologic plane entered on the left side. There is several adhesions between the transverse colon and the left colon which were divided without difficulty. This point the large bowel was run there was found to be apple length for a to be easily retracted to midline and for the colon resection to proceed. A locking laparoscopic grasper was placed on the site of tattoo. The abdomen was deinsufflated and the small midline incision placed centered on the umbilicus measuring approximately 6 cm in length. The skin was opened with scalpel and subcutaneous tissues were opened with Bovie cautery. A finger was inserted into the 5 mm trocar site defect and used to protect the underlying bowel as the fascia was opened for the length of the incision. A wound protector was then placed into the incision. Using the still fastened on the bowel laparoscopic grasper the site of concern was identified and extracorporealized through the small laparotomy. The tattoos were known to be just distal to the lesion. As a consequent the distal resection was taken just below the level of the tattoos. Small mesenteric window was made and the bowel was divided with a 4.5 mm staple length 75 mm KWABENA stapler. Segment of bowel approximately 14 cm was subsequently removed with the proximal resection line taken in the same staple technique. The mesentery was then divided with sequential clamping and division with 0 Vicryl ties placed. The specimen was brought off the field and opened on the back table -the distal aspect of the specimen clearly contained all 4 tattoo blisters however -the degree of mucosal erosion within the midportion of the specimen was fairly unimpressive. As a consequence the decision was made to inspect the intraluminal contents of the proximal segment of bowel beyond the area of resection. The abdomen was toweled off. In a controlled fashion the staple lines on the proximal bowel was removed -total of 4 silk sutures were placed in a josh pattern under to hold bowel open. Inspecting at least 6 cm further inside there was no lesion whatsoever. Given that the bowel was opened, into for the opportunity to inspect the distal intraluminal area as well the decision was made to create a hand-sewn end-to-end colo colo anastomosis. The serosa of the colon was then skeletonized for approximately 1 cm from its epiploic fat and mesenteric attachments circumferentially using cut cautery. The backside of the colon was then brought together utilizing simple horizontal mattress sutures. The staple line was removed from the distal segment -this was inspected 6 cm further inside again with no lesion identified. We then proceeded to place a 3 0 Vicryl mucosal layer -corners were Canelled and the anterior portion of the anastomosis deep layer was completed. A layer 3 0 silk was then used for the 2nd seromuscular layer -imbricating the deep layer. The anastomosis was palpated and found to be widely patent. The mesenteric defect was not closed. The anastomosis was then pushed into the abdomen. The wound retractor was purse-stringed with a umbilical tape allowing the abdomen to be reinsufflated. Upon inspection the anastomosis was located in the left pericolic gutter without any tension whatsoever. There is good hemostasis. The omentum was brought down over the abdominal contents including the anastomosis. Ports were then withdrawn under direct visualization The fascial defect at the umbilicus was then closed using running 0 PDS suture in a simple continuous fashion. Local anesthetic was injected into the fascia and skin. The area was irrigated with a dilute solution of hydrogen peroxide. Skin was then closed using monofilament absorbable suture in subcuticular fashion for all skin incisions. Skin glue was then applied Patient was extubated read to PACU without incident Complications: none Condition: stable Disposition: PACU Plan for aftercare: PACU then to floor
--- NOTE | 2019-06-06 17:51 | SUR.PHASEI ---
1739 late entry - Report called to Vivienne PROFESSIONAL HOUSING CONSULTANT, explained his desire to be out of bed overrides his desire for pain med. VSS 1744 To ICU, bed down and locked, assisted to commode by ICU DRY GOODS INSPECTOR and RNDel ONiel, RN, and myself. Patient stable on feet, asked for privacy, PACU RNs left the room. ICU staff and family member present. BEAUTY OPERATOR APPRENTICE stated that she did not want to delay for VS. Resp unlabored, skin warm and dry, incisions remain CDI w/no change from PACU arrival.
--- NOTE | 2019-06-06 17:55 | SUR.PHASEI ---
1654 late entry - Dr. Hutchinson said to infuse his remaining IV fluid while in PACU
[2019-06-06] MEDS: LACTATED RINGERS 1,000 ML 75 ML IV (18:26)
[2019-06-06] MEDS: METHOCARBAMOL 500 MG TABLET 750 MG PO (18:38)
[2019-06-06] MEDS: HYDROMORPHONE 0.5 MG INJ IV ×3 (18:46→23:54)
[2019-06-06] MEDS: GABAPENTIN 300 MG CAPSULE 900 MG PO (20:43)
[2019-06-06] MEDS: ATORVASTATIN 20 MG TABLET PO (20:44)
[2019-06-07] MEDS: HYDROMORPHONE 0.5 MG INJ IV ×7 (03:08→20:34)
[2019-06-07 03:25] VITALS: BP 126/72; PULSE 83; RESP 16; TEMP 36.9; O2SAT 98
[2019-06-07 05:13] LABS: Add Manual Diff / Slide Review NO; Basophils Absolute Auto 0 /uL (0-100); Basophils Percent Auto 0.1 % (0-2); Eosinophils Absolute Auto 0 /uL (0-450); Hemoglobin 13.9 g/dL (13.5-17.5); Lymphocytes Absolute Auto 900 /uL (1100-4500); Lymphocytes Percent Auto 6.6 % (25-40); Mean Corpuscular HGB Conc 34.7 % (30-36); Mean Corpuscular Hemoglobin 32.2 PG (26-34); Mean Corpuscular Volume 92.6 fL (80-100); Monocytes Absolute Auto 500 /uL (0-900); Monocytes Percent Auto 3.7 % (3-14); Neutrophils Absolute Auto 12000 /uL (1500-7000); Neutrophils Percent Auto 89.6 % (50-75); Platelet Count 249 X10^3/uL (150-400); Red Blood Cell Count 4.32 X10^6/uL (4.5-5.9); Red Cell Distribution Width 12.6 % (11.6-14.8); White Blood Cell Count 13.4 X10^3/uL (4.5-11.0)
[2019-06-07 05:18] LABS: BUN Creatinine Ratio 12.5 (6-22); Blood Urea Nitrogen 10 mg/dL (9-20); Calcium 8.7 mg/dL (8.4-10.2); Carbon Dioxide 30 mmol/L (22-32); Chloride 102 mmol/L (98-107); Estimated Glomerular Filt Rate > 60.0 mL/min (>60); Glucose 138 mg/dL (70-100); HEMOLYSIS < 15 (0-50); Magnesium 1.9 mg/dL (1.6-2.3); Potassium 4.3 mmol/L (3.4-5.1); Sodium 138 mmol/L (137-145)
[2019-06-07] MEDS: ACETAMINOPHEN 325 MG TABLET 650 MG PO ×3 (05:57→18:25)
[2019-06-07] MEDS: HEPARIN 5,000 UNIT/ML VIAL 5000 UNIT SUBCUT ×3 (06:01→22:28)
[2019-06-07] MEDS: SUBOXONE 1 EACH SL ×2 (06:04→12:00)
[2019-06-07] MEDS: PANTOPRAZOLE 40 MG TABLET PO (06:06)
[2019-06-07] MEDS: LACTATED RINGERS 1,000 ML 75 ML IV (06:56)
[2019-06-07 09:07] VITALS: BP 122/69; PULSE 82; RESP 18; TEMP 36.9; O2SAT 97
[2019-06-07 09:20] VITALS: PULSE 80; RESP 12; O2SAT 99
[2019-06-07] MEDS: MAGNESIUM SULFATE 2 GM/50 ML PIGGYBACK IV (09:27)
[2019-06-07] MEDS: buPROPion SR 150 MG TAB 300 MG PO (09:28)
[2019-06-07] MEDS: METHOCARBAMOL 500 MG TABLET 750 MG PO ×4 (09:29→20:35)
--- NOTE | 2019-06-07 12:20 | PC.NURSE ---
Day Shift Note Alert and oriented x3. Reports pain 3/10 to abdomen and that Dilaudid IV is adequate for pain control. Denies nausea, tolerating ice chips without issue. Up out of bed this morning, instructed on logroll - did well. Out walking in halls x3 this shift, steady on feet, independent. Denies flatus, BTs x4. Incision/lap sites well approximated and open to air. Reports feeling hungry, encouraged to continue ambulation as tolerated. Instructed to cough and deep breathe with appropriate splinting of abdomen and IS teaching provided by RT. Ma catheter in place and draining clear yellow urine. Call light within reach, using appropriately to make needs known.
[2019-06-07 13:05] VITALS: BP 142/80; PULSE 82; RESP 16; TEMP 36.7; O2SAT 98
--- NOTE | 2019-06-07 14:02 | PM.PN.1 ---
Subjective Date Patient Seen: 06/07/19 Time Patient Seen: 10:00 Interval history: Patient feeling reasonably well after surgery yesterday Tolerating ice chips, hungry No flatus, no bowel movement. Minimal pain Exam Vital Signs (past 8 hours): - 06/07/19 09:07 06/07/19 09:20 06/07/19 13:05 Temperature 98.5 F 98.1 F Pulse Rate 82 80 82 Respiratory Rate 18 12 16 Blood Pressure 122/69 142/80 H Pulse Oximetry 97 99 98 Oxygen Delivery Method Room Air Oxygen Flow Rate 0 Narrative Exam Narrative: Well-appearing no acute distress Breathing comfortably on room air Regular rate and rhythm no murmurs gallops or rubs Abdomen mildly distended, tympanic on percussion, minimally tender. Wounds clean dry and intact Periphery warm and well perfused Objective Labs Result Diagrams: 06/07/19 04:45 06/07/19 04:45 Labs: Laboratory Results - last 24 hr 06/07/19 06/07/19 04:45 04:45 WBC 13.4 H D RBC 4.32 L Hgb 13.9 Hct 40.0 L MCV 92.6 MCH 32.2 MCHC 34.7 RDW 12.6 Plt Count 249 Neut % (Auto) 89.6 H D Lymph % (Auto) 6.6 L D [place] % (Auto) 3.7 Eos % (Auto) 0.0 L Baso % (Auto) 0.1 Neut # (Auto) 78342 H Lymph # (Auto) 900 L [place] # (Auto) 500 Eos # (Auto) 0 Baso # (Auto) 0 Sodium 138 Potassium 4.3 Chloride 102 Carbon Dioxide 30 BUN 10 Creatinine 0.80 Estimated GFR > 60.0 BUN/Creatinine Ratio 12.5 Glucose 138 H Calcium 8.7 Magnesium 1.9 Assessment & Plan Assessment & Plan narrative: 39M POD1 s/p lap L segmental colectomy with hand sewn colo colo anastomosis for partially obstructing lesion with history of recent hemorrhage from it. Now doing well postoperatively. Minimal pain. Awaiting return of bowel Plan: Okay for clears Multimodal pain control acetaminophen, gabapentin, methocarbamol, IV hydromorphone Continue home Suboxone, bupropion, atorvastatin, pantoprazole Ambulation Removal a catheter early tomorrow morning Good urine output reducing IVF Repleted magnesium Heparin for DVT prophylaxis Quality VTE Deep Vein Thrombosis/Pulmonary Embolism Present on Admission: No
[2019-06-07 15:52] VITALS: BP 146/85; PULSE 85; RESP 16; TEMP 37.1; O2SAT 99
--- NOTE | 2019-06-07 17:47 | PC.NURSE ---
Patient transferred to room 225. Ambulated upstairs with float nurse. All belongings and medications sent upstairs with float nurse. Report given to receiving JOÃO Feldman.
--- NOTE | 2019-06-07 18:21 | PC.NURSE ---
Tiffany shift note: 1750: Received patient from ICU with Nola MOYER. Awake, alert, and independently ambulating. Oriented to room, environment, and the resume plan of care. Call light within reach.
[2019-06-07 19:34] VITALS: BP 147/98; PULSE 87; RESP 20; TEMP 37.7; O2SAT 100
[2019-06-07] MEDS: GABAPENTIN 300 MG CAPSULE 900 MG PO (20:34)
[2019-06-07] MEDS: ATORVASTATIN 20 MG TABLET PO (20:34)
[2019-06-08] VITALS (12 sets, daily range): BP systolic 108–170; BP diastolic 64–105; PULSE 73–94; RESP 16–18; TEMP 36.6–37.2; O2SAT 95–100
[2019-06-08] MEDS: HYDROMORPHONE 0.5 MG INJ IV ×5 (01:17→17:18)
[2019-06-08] MEDS: LACTATED RINGERS 1,000 ML 50 ML IV (01:19)
[2019-06-08] MEDS: ACETAMINOPHEN 325 MG TABLET 650 MG PO ×5 (01:25→23:37)
[2019-06-08] MEDS: HEPARIN 5,000 UNIT/ML VIAL 5000 UNIT SUBCUT ×3 (05:34→23:04)
[2019-06-08] MEDS: SUBOXONE 1 EACH SL ×2 (05:42→12:56)
[2019-06-08] MEDS: PANTOPRAZOLE 40 MG TABLET PO (06:03)
--- NOTE | 2019-06-08 06:29 | PC.NURSE ---
Pt has + BT x 4, + flatus. Pt is ambulating on unit, drinking clear liquids, and tolerated removal of Ma well. Incisions sites clear. pale and cool. Abdomen is firm. Pt used 0.5 mg dilaudid IVP x 2 this shift.
--- NOTE | 2019-06-08 07:59 | PC.NURSE ---
Pt alert,oriented up ambulating in [place], BT+ flatus present denies nausea.
[2019-06-08] MEDS: METHOCARBAMOL 500 MG TABLET 750 MG PO ×2 (08:36→12:51)
[2019-06-08] MEDS: POLYETHYLENE GLYCOL 3350 17 GM POWD.PACK PO (08:36)
[2019-06-08] MEDS: buPROPion SR 150 MG TAB 300 MG PO (08:36)
[2019-06-08] MEDS: OXYCODONE IR 5 MG TABLET PO (11:03)
--- NOTE | 2019-06-08 11:14 | PC.NURSE ---
Addendum entered by Eri Grewal R.N. 06/08/19 14:50: Pt reports gas pain across lower abdomen, requesting IV dilaudid, 0.5mg given. Refused clear liquid for lunch. Original Note: Pt reports having three brown liquid stools and lots of gas pain. Given 5mg oxycodone.
[2019-06-08] MEDS: ONDANSETRON 4 MG/2 ML INJ 8 MG IV (14:44)
--- NOTE | 2019-06-08 16:56 | PM.PNPO.1 ---
Subjective Date Patient Seen: 06/08/19 Time Patient Seen: 16:56 Interval history: Patient is gentleman post resection of a portion of his sigmoid which had strictured any has a primary anastomosis. He is having persistent nausea. He says it is not related to his pain medication. Today's had persistent crampy abdominal pain after MiraLax but is also had multiple bowel movements. Not really hungry at this time and said he probably will not eat much for dinner. Exam Vital Signs (past 8 hours): - 06/08/19 11:20 06/08/19 16:26 Temperature 99.0 F 98.7 F Pulse Rate 80 78 Respiratory Rate 17 18 Blood Pressure 154/97 H 160/103 H Pulse Oximetry 98 97 Oxygen Delivery Method Room Air Oxygen Flow Rate 0 Narrative Exam Narrative: Good respiratory effort. Lungs clear. Abdomen is flat and soft. Incisions are intact without cellulitis. Mild tenderness in the area of the incisions in the midline and also left lower/central lower abdomen, as expected. Alert. Blood pressure is up a little bit today. Pulses normal is temperature is normal. No labs today. Objective Labs Result Diagrams: 06/07/19 04:45 06/07/19 04:45 Assessment & Plan Post-op Postoperative Procedures Operation Date: 06/06/19 11:30 Actual Procedures Side Surgeon p Laparoscopic segmental left colectomy with anastomosis Kojo Caballero MD Postoperative day: 3 Postoperative status: doing well Postoperative plan narrative: Patient has persistent nausea. It may be due to his narcotics. It may also be due to some of his other medications he is on. I have reduced his dose of gabapentin and stopped his robaxin in the hopes that this might improve things. I have added sugar to his IV fluid. I have added Toradol to his pain medication list in the hopes it will reduce the use of his narcotics. I did advance his diet but told him not to feel obligated to take it all in when it arrives. He did have dry heaves earlier and received medication for nausea. I will check labs in the morning. Postoperatively is white blood cell count was elevated with Glenna or its of segs which would be expected. I want to make sure that is improving. Quality VTE Deep Vein Thrombosis/Pulmonary Embolism Present on Admission: No
[2019-06-08] MEDS: DEXTROSE 5%-0.45% NS 1,000 ML 84 ML IV (17:14)
[2019-06-08] MEDS: PROCHLORPERAZINE 10 MG/2 ML VIAL IV (20:15)
[2019-06-08] MEDS: KETOROLAC 30 MG/ML VIAL IV (20:26)
[2019-06-08] MEDS: GABAPENTIN 300 MG CAPSULE PO (23:38)
[2019-06-08] MEDS: ATORVASTATIN 20 MG TABLET PO (23:39)
[2019-06-09] VITALS (8 sets, daily range): BP systolic 131–160; BP diastolic 78–104; PULSE 67–85; RESP 14–18; TEMP 36.6–37.4; O2SAT 97–100
[2019-06-09] MEDS: KETOROLAC 30 MG/ML VIAL IV ×4 (03:51→23:54)
[2019-06-09] MEDS: PROCHLORPERAZINE 10 MG/2 ML VIAL IV (03:54)
[2019-06-09 05:09] LABS: Add Manual Diff / Slide Review NO; Basophils Absolute Auto 0 /uL (0-100); Basophils Percent Auto 0.3 % (0-2); Eosinophils Absolute Auto 0 /uL (0-450); Eosinophils Percent Auto 0.2 % (2-4); Hemoglobin 13.9 g/dL (13.5-17.5); Lymphocytes Absolute Auto 2300 /uL (1100-4500); Lymphocytes Percent Auto 22.7 % (25-40); Mean Corpuscular HGB Conc 34.7 % (30-36); Mean Corpuscular Hemoglobin 32.2 PG (26-34); Mean Corpuscular Volume 92.8 fL (80-100); Monocytes Absolute Auto 900 /uL (0-900); Monocytes Percent Auto 8.6 % (3-14); Neutrophils Absolute Auto 7000 /uL (1500-7000); Neutrophils Percent Auto 68.2 % (50-75); Platelet Count 255 X10^3/uL (150-400); Red Blood Cell Count 4.31 X10^6/uL (4.5-5.9); Red Cell Distribution Width 12.8 % (11.6-14.8); White Blood Cell Count 10.3 X10^3/uL (4.5-11.0)
[2019-06-09 05:18] LABS: BUN Creatinine Ratio 7.5 (6-22); Blood Urea Nitrogen 6 mg/dL (9-20); Calcium 8.6 mg/dL (8.4-10.2); Carbon Dioxide 31 mmol/L (22-32); Chloride 102 mmol/L (98-107); Estimated Glomerular Filt Rate > 60.0 mL/min (>60); Glucose 145 mg/dL (70-100); HEMOLYSIS < 15 (0-50); Potassium 3.6 mmol/L (3.4-5.1); Sodium 138 mmol/L (137-145)
[2019-06-09] MEDS: DEXTROSE 5%-0.45% NS 1,000 ML 84 ML IV (05:30)
--- NOTE | 2019-06-09 05:46 | PC.NURSE ---
Pt got relief from nausea and abdominal pain from Tramadol and Compazine. He was able to sleep. Abdomen is soft and +BTs x 4. No BMs this shift. Incision sites are pale and cool with no s/s of infection.
[2019-06-09] MEDS: SUBOXONE 1 EACH SL ×2 (06:18→11:22)
[2019-06-09] MEDS: ACETAMINOPHEN 325 MG TABLET 650 MG PO ×3 (06:18→16:48)
[2019-06-09] MEDS: HEPARIN 5,000 UNIT/ML VIAL 5000 UNIT SUBCUT ×2 (06:18→13:20)
[2019-06-09] MEDS: PANTOPRAZOLE 40 MG TABLET PO (06:19)
[2019-06-09] MEDS: buPROPion SR 150 MG TAB 300 MG PO (08:20)
[2019-06-09] MEDS: GABAPENTIN 300 MG CAPSULE PO ×2 (08:20→20:44)
--- NOTE | 2019-06-09 12:17 | P.PN_ITS ---
Subjective Date Patient Seen: 06/09/19 Time Patient Seen: 12:14 Interval history: The patient feels much better now that his nausea resolved. This resolved when he stopped taking narcotics and we began taking the Toradol. His pain is very well controlled with it. He is asking for general diet now as he tolerated liquids this morning. He is passing gas and had a bowel movement. Bowel movement is runny. Exam Vital Signs (past 8 hours): - 06/09/19 07:56 06/09/19 08:26 06/09/19 11:41 Temperature 99.0 F 97.9 F Pulse Rate 67 74 Respiratory Rate 14 15 Blood Pressure 149/93 H 153/89 H Pulse Oximetry 100 97 98 Oxygen Delivery Method Room Air Oxygen Flow Rate 0 Narrative Exam Narrative: Pleasant cooperative moving very well. Lungs are clear to auscultation. No rales or rhonchi. Heart regular rate and rhythm no murmur gallop. Abdomen is flat soft and essentially nontender. Incisions are all intact. No cellulitis. No guarding. No masses. Objective Labs Result Diagrams: 06/09/19 04:51 06/09/19 04:51 Labs: Laboratory Results - last 24 hr 06/09/19 06/09/19 04:51 04:51 WBC 10.3 RBC 4.31 L Hgb 13.9 Hct 40.0 L MCV 92.8 MCH 32.2 MCHC 34.7 RDW 12.8 Plt Count 255 Neut % (Auto) 68.2 Lymph % (Auto) 22.7 L [place] % (Auto) 8.6 Eos % (Auto) 0.2 L Baso % (Auto) 0.3 Neut # (Auto) 7000 Lymph # (Auto) 2300 [place] # (Auto) 900 Eos # (Auto) 0 Baso # (Auto) 0 Sodium 138 Potassium 3.6 Chloride 102 Carbon Dioxide 31 BUN 6 L Creatinine 0.80 Estimated GFR > 60.0 BUN/Creatinine Ratio 7.5 Glucose 145 H Calcium 8.6 Magnesium 2.0 Assessment & Plan Post-op Postoperative Procedures Operation Date: 06/06/19 11:30 Actual Procedures Side Surgeon p Laparoscopic segmental left colectomy with anastomosis Kojo Caballero MD Postoperative status: doing well Postoperative plan narrative: Check stool for C diff. Advance diet. Probable discharge tomorrow morning. Labs are all noted and all in acceptable range. Will back off on IV fluid. Quality VTE Deep Vein Thrombosis/Pulmonary Embolism Present on Admission: No
--- NOTE | 2019-06-09 14:07 | CM.DPC ---
DCP: continued: case received and EMR reviewed, including Dr. Hermosillo's progress note of this afternoon. Pt did have Laproscopic L hemicolectomy on 06/06. Today he is up and mobilizing independently and diet is being advanced to regular. Nausea is gone after a d/c of narcotics, +flatus and with rummy stools. A check for possible C-Diff is ordered. Dr. Mcbride is planning for d/c tomorrow if pt continues to do well. Will be following prn. His plan for a d/c to home at d/c and with his Magda is noted.
[2019-06-09 14:16] LABS: Clostridium Difficile Tox PCR Negative for C. diff
[2019-06-09] MEDS: TRAZODONE 50 MG TABLET PO (20:44)
[2019-06-09] MEDS: ATORVASTATIN 20 MG TABLET PO (20:44)
--- NOTE | 2019-06-09 22:39 | PC.NURSE ---
Patient A&Ox4, ambulating independently, no nausea no emesis; tolerating diet. Pain controlled 2-3. SBP slightly elevated in the 160s; patient normally takes Hydralazine and this has not been restarted-will continue to monitor. Report to laura MOYER.
[2019-06-10 00:01] VITALS: TEMP 37.4
[2019-06-10] MEDS: ACETAMINOPHEN 325 MG TABLET 650 MG PO ×2 (00:01→06:12)
[2019-06-10 00:08] VITALS: BP 165/87; PULSE 100; RESP 16; TEMP 36.3; O2SAT 98
[2019-06-10 04:00] VITALS: BP 143/80; PULSE 67; RESP 15; TEMP 36.8; O2SAT 98
[2019-06-10] MEDS: SUBOXONE 1 EACH SL (06:12)
[2019-06-10] MEDS: PANTOPRAZOLE 40 MG TABLET PO (06:12)
[2019-06-10] MEDS: KETOROLAC 30 MG/ML VIAL IV (06:14)
[2019-06-10 08:00] VITALS: BP 150/104; PULSE 107; RESP 18; TEMP 37.1; O2SAT 98
[2019-06-10] MEDS: buPROPion SR 150 MG TAB 300 MG PO (09:20)
[2019-06-10] MEDS: GABAPENTIN 300 MG CAPSULE PO (09:20)
--- NOTE | 2019-06-10 10:14 | P.DS_ITS ---
History of Present Illness Date Patient Seen: 06/10/19 Time Patient Seen: 10:13 Chief complaint: SBO Narrative: Patient is a gentleman admitted with a sigmoid stricture. He underwent a bowel prep and resection. His postoperative course has been fairly smooth. Discharge Providers Date of admission: 06/05/19 10:00 Discharge Date: 06/10/19 Consults: 06/06/19 11:00 Consult to Respiratory Therapy Evaluate & Treat Comment: Physician Instructions: Evaluate and treat Discharge provider: Mansoor Hermosillo MD Summary Discharge Diagnosis: Sigmoid colon stricture Hypertension Elevated cholesterol Chronic joint pain treated with Suboxone Chronic gastroesophageal reflux disease treated with proton pump inhibitor Exam Vital Signs (past 8 hours): - 06/10/19 04:00 06/10/19 08:00 Temperature 98.3 F 98.7 F Pulse Rate 67 107 H Respiratory Rate 15 18 Blood Pressure 143/80 H 150/104 H Pulse Oximetry 98 98 Oxygen Delivery Method Room Air Oxygen Flow Rate 0 Narrative Exam Narrative: Lungs are clear. Heart regular rate and rhythm. Abdomen is flat soft and nontender. All incisions are intact without cellulitis. No unusual tenderness. Objective Labs Result Diagrams: 06/09/19 04:51 06/09/19 04:51 Labs: Laboratory Results - last 24 hr 06/09/19 13:10 C. difficile Tox (PCR) Negative for c. diff Discharge Plan Discharge Plan Patient Disposition: Home Discharge comment: The final pathology report on your resection is pending. We do not expect anything other than an inflammatory stricture(narrowing from inflammation). You have done very well postoperatively. Continue to eat a general diet as tolerated. You may take 600 mg of ibuprofen every 6 hours if needed for pain. This is 3 of the [id number] pills. Try to take them with food. Discharge Med Rec/Prescriptions Prescriptions: Continued hydrochlorothiazide 25 mg Tablet 25 mg PO DAILY RF: 0 bupropion HCl 300 mg Tablet Extended Release 24 Hr 300 mg PO QAM RF: 0 buprenorphine-naloxone [Suboxone] 8-2 mg Film 1 film BUCCAL BID RF: 0 testosterone cypionate 1 dose IM DIRECTED RF: 0 pantoprazole 40 mg Tablet,Delayed Release (Dr/Ec) 40 mg PO DAILY RF: 0 atorvastatin 20 mg Tablet 20 mg PO DAILY RF: 0 Follow up/Referrals: Kojo Caballero MD [Physician] - 1 Week (Please call our office tomorrow and make an appointment to see Dr. Caballero in about 10 days. If you need to reach a doctor after hours call our office and listen to the entire message. At the end you will be connected with the page level glass forming machine operator.) Provider Discharge Instructions Diet: Diet as Tolerated Activity: Avoid lifting over 10 lb or straining for the next 5 weeks. This is to keep it from getting hernia. Also avoid sex. You may walk. Do not drive until pain free off medication. Skin/Wound/Dressing Care Report to your healthcare provider any signs of infection, such as:: increased pain, unusual drainage and unusual redness Visit Report/Discharge Packet Instructions: DI for Colectomy Discharge Data Attending Provider: Kojo Caballero Admjoseph Date/Time: 06/05/19 10:00 Quality VTE Deep Vein Thrombosis/Pulmonary Embolism Present on Admission: No
--- NOTE | 2019-06-10 10:29 | PC.NURSE ---
Day shift: Returned 21 each Suboxone to Pt now 1030. Prior to his d/c. He has counted 21 each as well.
--- NOTE | 2019-06-10 11:04 | PC.NURSE ---
Day shift: Pt ambulated to private car driven by his spouse with this designer writer. Tolerated well. Paperwork signed and all questions answered. Pt has all personal belongings as well as all his Suboxone. No new MD scrips.
== END 2019-06-10 11:06 | disposition home or self-care (01) | DRG 331 ==
LOC: ICU 06-07 14:52 → AC 06-07 18:00
PROVIDERS: Specialist; Admitting Provider Surgery; Visit Provider Surgery
PROC: 0DTE0ZZ Resection of Large Intestine, Open Approach (ICD-10-PCS; principal; 2019-06-06 11:30)
DX: K56.600 Partial intestinal obstruction, unspecified as to cause (principal); G89.29 Other chronic pain; I10 Essential (primary) hypertension; K21.9 Gastro-esophageal reflux disease without esophagitis; Z87.891 Personal history of nicotine dependence; R11.0 Nausea; E78.5 Hyperlipidemia, unspecified
CPT/HCPCS: 36415; 44207; 44213; 80048; 83735; 85025; 87493; 87797; 94760; J0330; J0696; J0780; J1100; J1170; J1644; J1885; J2250; J2405; J2704; J3010

== ENCOUNTER → 2019-06-13 09:54 | Outpatient (CLI) | payer BC, SELFPAY ==
[2019-06-05 10:50] VITALS: BMI 28.0
[2019-06-13 10:11] LABS: Add Manual Diff / Slide Review NO; Basophils Absolute Auto 100 /uL (0-100); Basophils Percent Auto 0.4 % (0-2); Eosinophils Absolute Auto 100 /uL (0-450); Eosinophils Percent Auto 0.5 % (2-4); Hematocrit 43.1 % (41-53); Hemoglobin 14.7 g/dL (13.5-17.5); Lymphocytes Absolute Auto 1700 /uL (1100-4500); Lymphocytes Percent Auto 10.1 % (25-40); Mean Corpuscular Hemoglobin 31.9 PG (26-34); Monocytes Absolute Auto 2000 /uL (0-900); Monocytes Percent Auto 11.6 % (3-14); Neutrophils Absolute Auto 13200 /uL (1500-7000); Neutrophils Percent Auto 77.4 % (50-75); Platelet Count 284 X10^3/uL (150-400); Red Blood Cell Count 4.59 X10^6/uL (4.5-5.9); Red Cell Distribution Width 13.2 % (11.6-14.8); White Blood Cell Count 17.1 X10^3/uL (4.5-11.0)
== END ==
PROVIDERS: Visit Provider Surgery
DX: R10.9 Unspecified abdominal pain (principal)
CPT/HCPCS: 36415; 85025

== ENCOUNTER 2019-06-13 10:58 | Inpatient (IN) | payer BC, SELFPAY ==
[2019-06-13 11:12] VITALS: BMI 28.0
[2019-06-13 12:02] VITALS: BP 113/53; PULSE 93; RESP 19; TEMP 36.6; O2SAT 98
[2019-06-13] MEDS: HYDROMORPHONE 1 MG INJ 0.5 MG IV (12:05)
--- NOTE | 2019-06-13 12:06 | DI.CT.S_ITS ---
PROCEDURE: CT ABDOMEN PELVIS W CON INDICATIONS: severe post op abdominal pain TECHNIQUE: After the administration of oral and intravenous contrast, 5 mm thick sections acquired from the diaphragms to the symphysis. 5 mm thick coronal and sagittal reformats were performed. For radiation dose reduction, the following was used: automated exposure control, adjustment of mA and/or kV according to patient size. COMPARISON: [facility], CT, CT ABDOMEN PELVIS W CON, 05/29/2019, 9:58. FINDINGS: Image quality: Excellent. ABDOMEN: Lung bases: Mild left basilar atelectasis is seen is within normal limits Heart size is normal. Solid organs: Liver is normal in size and enhancement. Gallbladder is within normal limits. Biliary system is non-dilated. Pancreas enhances normally. Spleen is normal in size and enhancement. No adrenal nodules. Kidneys are normal in size and enhancement, without hydronephrosis. Peritoneum and bowel: Patient is status post interval left partial colectomy with postsurgical changes. No evidence of obstruction is seen. No peritoneal free fluid. Small pocket of extraluminal air is seen adjacent to anterior lateral aspect of mid descending colon series 2 image 56 and 55 and series 4 image 27. Adjacent mesenteric fat stranding and mild descending colon wall thickening in this area is also seen. In addition a tiny extraluminal air in nondependent portion of left peritoneal space just deep to the left rectus muscle is seen series 2 image 62 and may represent postsurgical iatrogenic air. No sigmoid diverticulosis is seen. No evidence of acute sigmoid diverticulitis. abscess collection. Nodes and vessels: No retroperitoneal or mesenteric adenopathy. Aorta and inferior vena cava are normal in caliber. Miscellaneous: No ventral hernias. PELVIS: Genitourinary: Bladder wall thickness is normal. Miscellaneous: No inguinal hernias or adenopathy. Left anterolateral abdominal wall muscle swelling with overlying subcutaneous soft tissue edema and swelling is seen, most consistent with post surgical changes. No discrete drainable fluid collection is seen. Bones: No suspicious bony lesions. No vertebral body compression fractures. IMPRESSION: 1. Interval partial colectomy involving left colon with postsurgical changes seen in left side of abdomen. There is a small pocket of air which appears to extend from anterior lateral aspect of the left colon to the inner aspect of left anterior abdominal wall. Finding could represent postsurgical changes. Localized perforation cannot be entirely excluded. Second tiny air bubble is seen in nondependent portion of left peritoneal space and likely represent iatrogenic air from surgery. 2. No evidence of bowel obstruction. Mild fecal stasis in the colon. No abscess collection. No peritoneal free fluid. Findings were reported to Dr. Olivarez at 1:41 PM on 06/13/19. Dictated by: Kolby Baez M.D. on 06/13/2019 at 13:32 Approved by: Kolby Baez M.D. on 06/13/2019 at 13:43
--- NOTE | 2019-06-13 12:06 | PM.HP.1 ---
History of Present Illness Date Patient Seen: 06/13/19 Time Patient Seen: 11:07 Chief complaint: ABDOMINAL PAIN Narrative: 39yo M known to service for a recent segmental colectomy for a stricture. He was discharged three days ago and has been doing well, brenda diet, bowels moving. Yesterday after a lunch of fish with a cream-based sauce, he started to have abdominal pain. It has worsened through the evening so he called the office this morning. He had a CBC ordered and was told to come to the office for evaluation. Bowels have not moved since yesterday and he is quite uncomfortable appearing. He is not able to stand straight due to the pain, which he says is primarily in his LLQ. He is a bit distended. Inc intact and not infected appearing; has some ecchymoses along lower abdomen which he says has been there but is not sure if it is getting worse or not. Afebrile but says he was sweating some this morning, he thinks due to pain. WBC shows a leukocytosis to 17. Patient History Medical History HTN (hypertension) (Acute) Gastric reflux (Acute) Sleep apnea (Acute) Surgical History S/P colectomy (Acute) Hx of hand surgery (Resolved) Hx of knee surgery (Resolved) Hx of shoulder surgery (Resolved) Hx of vasectomy (Resolved) No pertinent past surgical history (Inactive) Family History Grandfather Diabetes mellitus Heart disease Grandmother Diabetes mellitus Stroke Social History marital status: household members: spouse occupational status: employed Smoking Status: Former smoker alcohol intake: current substance use type: does not use Family & Social History Family History Grandfather Diabetes mellitus Heart disease Grandmother Diabetes mellitus Stroke Social History: household members spouse Prior Living Arrangements House Safety & Behavioral: Feels Safe in Current Yes Environment Been Physically Hurt or No Threatened By a Person Suicidal Ideation Description None Suicide Plan Description No Plan Tobacco & Substance use: Tobacco type cigarettes Smoking Status Former smoker alcohol intake current alcohol intake frequency 0-2 drinks per day Substance Use Type does not use Meds Home Medications Medication Instructions Recorded Confirmed Type buprenorphine-naloxone [Suboxone] 1 film BUCCAL BID 05/29/19 06/13/19 History bupropion HCl 300 mg PO QAM 05/29/19 06/13/19 History hydrochlorothiazide 25 mg PO DAILY 05/29/19 06/13/19 History pantoprazole 40 mg PO DAILY 05/29/19 06/13/19 History testosterone cypionate 1 dose IM DIRECTED 05/29/19 06/13/19 History atorvastatin 20 mg PO DAILY 05/30/19 06/13/19 History Allergies Allergy/AdvReac Type Severity Reaction Status Date / Time lorazepam [From Ativan] AdvReac Intermediate Hospitalized Verified 06/13/19 11:12 x1wk Review of Systems Constitutional Constitutional: Reports as per HPI Exam Narrative Exam Narrative: AAO, NAD, overweight male EOMI, MMM, no scleral icterus; skin dry unlabored RA soft, moderately distended, ttp LLQ, no peritoneal signs; inc c/d/i with no erythema, moderate ecchymoses along LLQ and pelvic abd wall MAEW visible skin dry and intact Objective Labs Labs: WBC- 17 Assessment & Plan Assessment & Plan narrative: - severe pain and leukocytosis concerning for abscess, obstruction, or less likely gas pain --> admit to hospital, will order CT A/P and more labs --> NPO; prn pain control for now, pt on suboxone so will need dose adjustments of IV narcotics until able to start adjuvant therapies such as toradol - SCDs, hold lovenox for now for possible intervention Quality VTE Deep Vein Thrombosis/Pulmonary Embolism Present on Admission: No
[2019-06-13] MEDS: HYDROMORPHONE 1 MG INJ IV (12:30)
[2019-06-13] MEDS: fentaNYL 100 MCG/2 ML INJ 25 MCG IV ×5 (12:45→18:29)
[2019-06-13 12:49] LABS: INR 1.1 (0.9-1.3); Prothrombin Time 13.1 SECONDS (10.1-12.7)
[2019-06-13 12:50] LABS: Alanine Aminotransferase 77 IU/L (21-72); Albumin 3.8 g/dL (3.5-5.0); Albumin Globulin Ratio 1.4 (1.0-2.8); Alkaline Phosphatase 84 U/L (38-126); Aspartate Aminotransferase 33 IU/L (17-59); Bilirubin Total 0.8 mg/dL (0.2-1.3); Blood Urea Nitrogen 19 mg/dL (9-20); Calcium 8.8 mg/dL (8.4-10.2); Carbon Dioxide 29 mmol/L (22-32); Chloride 98 mmol/L (98-107); Estimated Glomerular Filt Rate > 60.0 mL/min (>60); Globulin 2.8 g/dL (1.7-4.1); Glucose 114 mg/dL (70-100); HEMOLYSIS < 15 (0-50); Potassium 4.2 mmol/L (3.4-5.1); Sodium 135 mmol/L (137-145); Total Protein 6.6 g/dL (6.3-8.2)
[2019-06-13 12:52] LABS: PTT Partial Thromboplastin Tim 31 SECONDS (26.4-36.2)
[2019-06-13 13:10] LABS: Bacteria Urine None Seen; RBC Urine None Seen (0-5/HPF)
[2019-06-13 13:11] LABS: Appearance Urine UA CLEAR; Bilirubin Urine UA NEGATIVE (NEGATIVE); Color Urine UA YELLOW; Glucose Urine UA NEGATIVE (Negative); Ketones Urine UA NEGATIVE (NEGATIVE); Leukocyte Esterase Urine UA NEGATIVE (NEGATIVE); Nitrite Urine UA NEGATIVE (Negative); Occult Blood Urine UA NEGATIVE (Negative); Protein Urine UA NEGATIVE (Negative); Urobilinogen Urine UA 0.2 E.U./dL (0.2); pH Urine UA 7.5 (4.5-8.0)
[2019-06-13 13:19] LABS: Squamous Epithelial Cell Urine 0-1 /HPF (0-5/HPF); WBC Urine 0-1/HPF (0-5/HPF)
[2019-06-13] MEDS: SODIUM CHLORIDE 0.9% 1,000 ML 100 ML IV (13:19)
[2019-06-13 13:20] LABS: Culture Indicated Urine Cult Not Indicated
--- NOTE | 2019-06-13 14:50 | PC.ADMIT ---
Admission Note: Arrived to room 106 at 1100 via wheelchair from clinic. Reporting abdominal pain 10/10, significant bruising to lower abdomen, lap sites from previous surgery intact and free of erythema. Last BM 06/12. Denies nausea. Independent in room. Oriented to room and to bed/tv/call light controls, call light within reach. Dilaudid administered with minimal effect, Dr. Olivarez updated and order for fentanyl received and given with positive effect reported by pt on reassessment. CT scan completed. Pt declines to lock up wallet at this time, in room closet. The patient,Marcos Ventura,39 y/o, was given written information regarding hospital policies, unit procedures and contact persons. Patient's smoking status: Former smoker. Vital Signs - 8 hr 06/13/19 12:02 Temperature 97.8 F Pulse Rate 93 H Respiratory Rate 19 Blood Pressure 113/53 L Pulse Oximetry 98
--- NOTE | 2019-06-13 14:53 | PM.EVENT ---
Date Patient Seen: 06/13/19 Time Patient Seen: 14:53 CT reviewed, small foci of air at anastomosis unclear if residual from surgery but likely microperforation, starting antibiotic and will keep NPO with plan for slow diet advancement. Reviewed plan with patient. Ok for ice chips. Pain managed well with low dose fentanyl.
[2019-06-13] MEDS: PIPERACILLIN-TAZO 3.375 GM/50 ML FROZ.PIGGY IV ×2 (14:55→21:00)
[2019-06-13 16:08] VITALS: BP 113/59; PULSE 78; RESP 16; O2SAT 99
[2019-06-13] MEDS: LACTOBACILLUS ACIDOPHILUS TABLET 1 EACH PO (16:50)
[2019-06-13 17:18] LABS: Add Manual Diff / Slide Review NO; Basophils Absolute Auto 100 /uL (0-100); Basophils Percent Auto 0.6 % (0-2); Eosinophils Absolute Auto 200 /uL (0-450); Eosinophils Percent Auto 1.2 % (2-4); Hematocrit 43.7 % (41-53); Hemoglobin 14.5 g/dL (13.5-17.5); Lymphocytes Absolute Auto 2200 /uL (1100-4500); Lymphocytes Percent Auto 13.7 % (25-40); Mean Corpuscular HGB Conc 33.3 % (30-36); Mean Corpuscular Hemoglobin 31.8 PG (26-34); Mean Corpuscular Volume 95.5 fL (80-100); Monocytes Absolute Auto 1800 /uL (0-900); Monocytes Percent Auto 10.9 % (3-14); Neutrophils Absolute Auto 11800 /uL (1500-7000); Neutrophils Percent Auto 73.6 % (50-75); Platelet Count 262 X10^3/uL (150-400); Red Blood Cell Count 4.57 X10^6/uL (4.5-5.9); Red Cell Distribution Width 13.3 % (11.6-14.8); White Blood Cell Count 16.1 X10^3/uL (4.5-11.0)
[2019-06-13] MEDS: fentaNYL 100 MCG/2 ML INJ 50 MCG IV ×3 (19:30→22:49)
[2019-06-13 23:52] VITALS: BP 102/45; PULSE 90; RESP 16; TEMP 37.2; O2SAT 93
[2019-06-14] MEDS: SODIUM CHLORIDE 0.9% 1,000 ML 100 ML IV (00:28)
[2019-06-14] MEDS: fentaNYL 100 MCG/2 ML INJ 50 MCG IV ×10 (00:30→21:09)
[2019-06-14] MEDS: PIPERACILLIN-TAZO 3.375 GM/50 ML FROZ.PIGGY IV ×4 (02:23→21:12)
[2019-06-14] MEDS: SUBOXONE 8MG/2MG 1 EACH SL ×2 (05:02→12:08)
[2019-06-14 05:30] LABS: Hematocrit 38.3 % (41-53); Hemoglobin 12.8 g/dL (13.5-17.5); Mean Corpuscular HGB Conc 33.4 % (30-36); Mean Corpuscular Volume 95.8 fL (80-100); Platelet Count 238 X10^3/uL (150-400); Red Cell Distribution Width 13.2 % (11.6-14.8); White Blood Cell Count 11.9 X10^3/uL (4.5-11.0)
[2019-06-14 05:39] LABS: Neutrophils Absolute Manual 7616 /uL (3000-5900); RBC Morphology Normal Morphology; Total Cells Counted 100
[2019-06-14 07:25] VITALS: BP 104/61; PULSE 80; RESP 18; TEMP 36.6; O2SAT 96
[2019-06-14] MEDS: LACTOBACILLUS ACIDOPHILUS TABLET 1 EACH PO ×3 (07:55→16:46)
--- NOTE | 2019-06-14 09:10 | PM.PN.1 ---
Subjective Date Patient Seen: 06/14/19 Time Patient Seen: 09:10 Interval history: Pain somewhat improved this morning -feels more focal in the left lower quadrant, less diffuse. Continues to pass gas Tolerating ice chips without difficulty Exam Vital Signs (past 8 hours): - 06/14/19 07:25 Temperature 97.8 F Pulse Rate 80 Respiratory Rate 18 Blood Pressure 104/61 Pulse Oximetry 96 Oxygen Delivery Method Room Air Oxygen Flow Rate 0 Narrative Exam Narrative: Well-appearing no acute distress Breathing comfortably on room air Regular rate and rhythm Abdomen with well healing laparoscopic port sites, ecchymosis at waist band stable. Soft. Tender to palpation quite focally in left lower quadrant. No reflux of guarding. Less tender than on admission Periphery warm Objective Labs Result Diagrams: 06/14/19 04:55 06/13/19 12:21 Labs: Laboratory Results - last 24 hr 06/13/19 06/13/19 06/13/19 11:20 12:21 12:21 WBC RBC Hgb Hct MCV MCH MCHC RDW Plt Count Neut % (Auto) Lymph % (Auto) [place] % (Auto) Eos % (Auto) Baso % (Auto) Neut # (Auto) Lymph # (Auto) [place] # (Auto) Eos # (Auto) Baso # (Auto) Total Counted Seg Neutrophils % Lymphocytes % (Manual) Monocytes % (Manual) Eosinophils % (Manual) Basophils % (Manual) Neutrophils # (Manual) RBC Morphology PT 13.1 H INR 1.1 APTT 31 Sodium 135 L Potassium 4.2 Chloride 98 Carbon Dioxide 29 BUN 19 Creatinine 1.00 Estimated GFR > 60.0 BUN/Creatinine Ratio 19.0 Glucose 114 H Calcium 8.8 Total Bilirubin 0.8 AST 33 ALT 77 H Alkaline Phosphatase 84 Total Protein 6.6 Albumin 3.8 Globulin 2.8 Albumin/Globulin Ratio 1.4 Urine Color Urine Appearance Urine pH Ur Specific Bull[place] Urine Protein Urine Glucose (UA) Urine Ketones Urine Occult Blood Urine Nitrate Urine Bilirubin Urine Urobilinogen Ur Leukocyte Esterase Urine RBC Urine WBC Ur Squamous Epith Cells Urine Bacteria Ur Culture Indicated? Nasal Screen MRSA (PCR) Negative for mrsa 06/13/19 06/13/19 06/14/19 12:50 17:10 04:55 WBC 16.1 H 11.9 H RBC 4.57 4.00 L Hgb 14.5 12.8 L Hct 43.7 38.3 L MCV 95.5 95.8 MCH 31.8 32.0 MCHC 33.3 33.4 RDW 13.3 13.2 Plt Count 262 238 Neut % (Auto) 73.6 Lymph % (Auto) 13.7 L [place] % (Auto) 10.9 Eos % (Auto) 1.2 L Baso % (Auto) 0.6 Neut # (Auto) 36918 H Lymph # (Auto) 2200 [place] # (Auto) 1800 H Eos # (Auto) 200 Baso # (Auto) 100 Total Counted 100 Seg Neutrophils % 64.0 Lymphocytes % (Manual) 14.0 L Monocytes % (Manual) 20.0 H Eosinophils % (Manual) 1.0 L Basophils % (Manual) 1.0 Neutrophils # (Manual) 7616 H RBC Morphology Normal morphology PT INR APTT Sodium Potassium Chloride Carbon Dioxide BUN Creatinine Estimated GFR BUN/Creatinine Ratio Glucose Calcium Total Bilirubin AST ALT Alkaline Phosphatase Total Protein Albumin Globulin Albumin/Globulin Ratio Urine Color Yellow Urine Appearance Clear Urine pH 7.5 Ur Specific Bullard 1.010 Urine Protein Negative Urine Glucose (UA) Negative Urine Ketones Negative Urine Occult Blood Negative Urine Nitrate Negative Urine Bilirubin Negative Urine Urobilinogen 0.2 Ur Leukocyte Esterase Negative Urine RBC None seen Urine WBC 0-1/hpf Ur Squamous Epith Cells 0-1 /hpf Urine Bacteria None seen Ur Culture Indicated? Cult not indicated Nasal Screen MRSA (PCR) Assessment & Plan Assessment & Plan narrative: 39-year-old man HD2 admitted for micro leak at hand-sewn anastomosis POD8 after left segmental colectomy for benign stricture. single small bubble of gas external to anastamosis. Clinically improved today -less pain, improved exam, white blood cell count from 17->11. On abx for less than 24hrs. Plan: Continue to NPO but ice chips and meds, continue pip/melvin -if continues to improve will continue on this course. If stalls or worsens will return to OR for loop ileostomy and drain placement. Probiotic Multimodal pain reg - methocarb, gabapentin, APAP, hm suboxone, PRN opiates Hm PPI and statin DVT - enoxaparin Quality VTE Deep Vein Thrombosis/Pulmonary Embolism Present on Admission: No
[2019-06-14] MEDS: buPROPion XL 150 MG TAB 300 MG PO (09:22)
[2019-06-14] MEDS: DEXTROSE 5%-0.45NS W/KCL 20MEQ 1,000 ML 75 MEQ IV (10:00)
--- NOTE | 2019-06-14 10:41 | PC.NURSE ---
Received in bed, awake, alert, oriented. Assessed for pain; describes 7/10 left lower abdominal pain, with radiation to low back. Medicated per order with fentanyl 50mcg IV to minimal effect. Ongoing reassessment. VSS. Sp02 >/= 90% on RA. Lungs CTA bilat. Abdominal surgical sites [employer], C/D/I. Noted extensive ecchymotic area lower abdomen. IVF infusing .45NS with 20mEq KCL @ 75ml/hr. L FA PIV site intact and patent. OOB to chair independently. Voids in commode. Discussed pain-management regimen and need to limit ice chips intake. Remains NPO, but taking p.o. meds without difficulty.
[2019-06-14] MEDS: ACETAMINOPHEN 325 MG TABLET 650 MG PO ×2 (11:41→17:41)
[2019-06-14] MEDS: METHOCARBAMOL 500 MG TABLET 750 MG PO ×3 (13:04→21:10)
[2019-06-14] MEDS: GABAPENTIN 300 MG CAPSULE PO ×2 (14:46→21:10)
--- NOTE | 2019-06-14 15:23 | CM.DANOTE ---
Discharge Planning/Care Management DCP: assessment: case received, EMR reviewed. READMIT: noted: pt was here 06/05-06/10 with s/s bowel obstruction. He underwent surgery: sergio colectomy after dx of sigmoid stricture. He was doing well and did d/c to home setting on 06/10 with a plan to followup in surgical clinic. Pt is a 39 year old male who admitted late about 1100 06/13 to care of [facility]. Dr. Curry saw him yesterday. Dr. Huddleston, who did the surgery last admission, sees him today. Pt is being treated for a likely microperforation related to last surgery. He is on IV antibiotics, NPO to ice chips. Surgeon notes plan to to continue antibiotics with slow diet progression and then either a d/c again to home or, if worsens, consideration of surgery with ileostomy. Payer: [employer]. Pt is employed by the [employer] and [facility] OF note: he is on Suboxone as a home medication, as he was during the last admission here. P: check in tomorrow and follow prn for needs as POC unfolds. CM Discharge Assessment Start: 06/14/19 15:21 Freq: Status: Active Protocol: Document 06/14/19 15:22 ITV (Rec: 06/14/19 15:23 ITV [id number]) Discharge Planning Assessment Advance Directives? Yes Advance Directives on File No History Provided By Patient Medical Record Prior Living Arrangements House Household Members spouse Is patient alert and oriented? Yes Review Status In Process
[2019-06-14 17:00] VITALS: BP 109/59; PULSE 88; RESP 18; TEMP 36.6; O2SAT 97
--- NOTE | 2019-06-14 17:50 | PC.NURSE ---
Addendum entered by Zayda Howell R.N. 06/14/19 22:01: 2045 - Pt up ambulating around the unit. Reports lightheadedness as resolved. Discussed HS meds. Pt agreeable to take with pain rx at 2114. Pt reports generalized fatigue and expressing frustration with slow progress. Education and reassurance provided. Original Note: 1825 - Pt c/o feeling lightheaded. Reports as new onset, Maybe I just sat up to quick. Discussed medication, and safety. Vital signs stable. Encouraged slow movements and call light use. Call light in reach.
[2019-06-14 17:57] VITALS: BP 116/60; PULSE 79; RESP 20; O2SAT 97
[2019-06-14] MEDS: ATORVASTATIN 20 MG TABLET PO (21:10)
[2019-06-15] MEDS: DEXTROSE 5%-0.45NS W/KCL 20MEQ 1,000 ML 75 MEQ IV ×2 (00:03→14:21)
[2019-06-15] MEDS: ACETAMINOPHEN 325 MG TABLET 650 MG PO ×4 (00:03→17:20)
[2019-06-15] MEDS: fentaNYL 100 MCG/2 ML INJ 50 MCG IV ×2 (00:13→05:04)
[2019-06-15 00:29] VITALS: BP 97/63; PULSE 65; RESP 18; TEMP 36.6; O2SAT 98
[2019-06-15] MEDS: PIPERACILLIN-TAZO 3.375 GM/50 ML FROZ.PIGGY IV ×4 (03:12→20:48)
[2019-06-15] MEDS: PANTOPRAZOLE 40 MG TABLET PO (05:03)
[2019-06-15] MEDS: SUBOXONE 8MG/2MG 1 EACH SL ×2 (05:05→11:16)
[2019-06-15 05:33] LABS: Add Manual Diff / Slide Review NO; Basophils Absolute Auto 0 /uL (0-100); Basophils Percent Auto 0.5 % (0-2); Eosinophils Absolute Auto 200 /uL (0-450); Eosinophils Percent Auto 2.2 % (2-4); Hematocrit 36.9 % (41-53); Hemoglobin 12.5 g/dL (13.5-17.5); Lymphocytes Absolute Auto 1900 /uL (1100-4500); Lymphocytes Percent Auto 22.9 % (25-40); Mean Corpuscular HGB Conc 33.9 % (30-36); Mean Corpuscular Hemoglobin 32.3 PG (26-34); Mean Corpuscular Volume 95.3 fL (80-100); Monocytes Absolute Auto 1200 /uL (0-900); Monocytes Percent Auto 14.1 % (3-14); Neutrophils Absolute Auto 5000 /uL (1500-7000); Neutrophils Percent Auto 60.3 % (50-75); Platelet Count 263 X10^3/uL (150-400); Red Blood Cell Count 3.88 X10^6/uL (4.5-5.9); Red Cell Distribution Width 13.1 % (11.6-14.8); White Blood Cell Count 8.3 X10^3/uL (4.5-11.0)
[2019-06-15] MEDS: fentaNYL 100 MCG/2 ML INJ 25 MCG IV ×4 (08:10→20:49)
[2019-06-15] MEDS: METHOCARBAMOL 500 MG TABLET 750 MG PO ×4 (08:14→20:48)
[2019-06-15] MEDS: LACTOBACILLUS ACIDOPHILUS TABLET 1 EACH PO ×3 (08:14→17:20)
[2019-06-15] MEDS: ENOXAPARIN 40 MG/0.4 ML SYRINGE SUBCUT (08:14)
[2019-06-15] MEDS: GABAPENTIN 300 MG CAPSULE PO ×3 (08:14→20:48)
[2019-06-15] MEDS: buPROPion XL 150 MG TAB 300 MG PO (08:14)
[2019-06-15 08:32] VITALS: BP 126/55; PULSE 73; RESP 16; TEMP 36.7; O2SAT 96
--- NOTE | 2019-06-15 09:24 | PM.PN.1 ---
Subjective Date Patient Seen: 06/15/19 Time Patient Seen: 09:27 Interval history: Feels clearly improved with less pain and better constitution. Continues to pass flatus Resting and mobilizing with out difficulty Exam Vital Signs (past 8 hours): - 06/15/19 08:32 Temperature 98.0 F Pulse Rate 73 Respiratory Rate 16 Blood Pressure 126/55 L Pulse Oximetry 96 Oxygen Delivery Method Room Air Oxygen Flow Rate 0 Narrative Exam Narrative: A febrile since admission looks well, bright affect breathing comfortably on RA RR Abd incisions CDI, abd less tender in LLQ, tolerates agressive percussion for first time this admission. no reflexive guarding. Neg bed shake test periphery warm Objective Labs Result Diagrams: 06/15/19 04:57 06/13/19 12:21 Labs: Laboratory Results - last 24 hr 06/15/19 04:57 WBC 8.3 RBC 3.88 L Hgb 12.5 L Hct 36.9 L MCV 95.3 MCH 32.3 MCHC 33.9 RDW 13.1 Plt Count 263 Neut % (Auto) 60.3 Lymph % (Auto) 22.9 L [place] % (Auto) 14.1 H Eos % (Auto) 2.2 Baso % (Auto) 0.5 Neut # (Auto) 5000 Lymph # (Auto) 1900 [place] # (Auto) 1200 H Eos # (Auto) 200 Baso # (Auto) 0 Assessment & Plan Assessment & Plan narrative: 39-year-old man HD3 admitted for micro leak at hand-sewn anastomosis POD9 after left segmental colectomy for benign stricture. single small bubble of gas external to anastamosis with abd pain Has continued to progressively improve each day on abx. He continues to pass flatus. WBC today normal at 8. I expect this to resolve and seal with non operative therapy. However still in need of IV abx. Likely will be able to have clears over weekend. Plan: Continue to NPO but ice chips and meds, continue pip/melvin -if continues to improve will continue on this course. If stalls or worsens will return to OR for loop ileostomy and drain placement - by imaging anastamosis fully intact except for small air bubble adjacent to it. Probiotic Multimodal pain reg - methocarb, gabapentin, APAP, hm suboxone, PRN opiates Hm PPI and statin DVT - enoxaparin Quality VTE Deep Vein Thrombosis/Pulmonary Embolism Present on Admission: No
--- NOTE | 2019-06-15 09:29 | P.PN_ITS ---
Subjective Date Patient Seen: 06/15/19 Time Patient Seen: 09:27 Interval history: Feels clearly improved with less pain and better constitution. Continues to pass flatus Resting and mobilizing with out difficulty Exam Vital Signs (past 8 hours): - 06/15/19 08:32 Temperature 98.0 F Pulse Rate 73 Respiratory Rate 16 Blood Pressure 126/55 L Pulse Oximetry 96 Oxygen Delivery Method Room Air Oxygen Flow Rate 0 Narrative Exam Narrative: A febrile since admission looks well, bright affect breathing comfortably on RA RR Abd incisions CDI, abd less tender in LLQ, tolerates agressive percussion for fi rst time this admission. no reflexive guarding. Neg bed shake test periphery warm Objective Labs Result Diagrams: 06/15/19 04:57 06/13/19 12:21 Labs: Laboratory Results - last 24 hr 06/15/19 04:57 WBC 8.3 RBC 3.88 L Hgb 12.5 L Hct 36.9 L MCV 95.3 MCH 32.3 MCHC 33.9 RDW 13.1 Plt Count 263 Neut % (Auto) 60.3 Lymph % (Auto) 22.9 L [place] % (Auto) 14.1 H Eos % (Auto) 2.2 Baso % (Auto) 0.5 Neut # (Auto) 5000 Lymph # (Auto) 1900 [place] # (Auto) 1200 H Eos # (Auto) 200 Baso # (Auto) 0 Assessment & Plan Assessment & Plan narrative: 39-year-old man HD3 admitted for micro leak at hand-sewn anastomosis POD9 after left segmental colectomy for benign stricture. single small bubble of gas external to anastamosis with abd pain Has continued to progressively improve each day on abx. He continues to pass flatus. WBC today normal at 8. I expect this to resolve and seal with non op erative therapy. However still in need of IV abx. Likely will be able to have clears over weekend. Plan: Continue to NPO but ice chips and meds, continue pip/melvin -if continues to improve will continue on this course. If stalls or worsens will return to OR for loop ileostomy and drain placement - by imaging anastamosis fully intact except for small air bubble adjacent to it. Probiotic Multimodal pain reg - methocarb, gabapentin, APAP, hm suboxone, PRN opiates Hm PPI and statin DVT - enoxaparin Quality VTE Deep Vein Thrombosis/Pulmonary Embolism Present on Admission: No
--- NOTE | 2019-06-15 11:05 | PC.NURSE ---
Received in bed, awake, alert, oriented. States abdominal pain improving, but requesting pain medication for 5/10 pain. Surgical sites C/D/I, no drainage noted. Abdomen benzol still operator to palpation. IVF infusing at ordered rate. IV abx per order. Sp02 >/=90% on RA. Lungs CTA bilat. Taking p.o. medications without difficulty, but otherwise NPO. Ambulating in unit without assistance. Voids. UO adequate. Discussed plan of care and pain-control regimen. Verbalized understanding.
[2019-06-15 16:00] VITALS: BP 122/76; PULSE 89; RESP 16; TEMP 36.8; O2SAT 98
--- NOTE | 2019-06-15 16:30 | CM.DPC ---
DCP: continued: Met with pt as planned. Introduced self and role. Pt was found lying in bed, looking comfortable. He confirms that thus far the plan remains medical management but is aware that surgery may be needed if this is not successful. He says he is hopeful that he will keep improving. He confirms that he does live with his Magda in [place]. 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 He says he gets most of his medical care at the [facility] and has recently been able [facility] He says this is much better than driving into [facility]. P: assured him that DCP team will be following to assist prn as POC unfolds. Follow....
--- NOTE | 2019-06-15 17:50 | PC.NURSE ---
1730- Patient states he feels he is getting a cold sore. Dr. Man notified and order recieved.
[2019-06-15] MEDS: ACYCLOVIR 5% OINT 15 GM 1 APPLIC TOP ×2 (18:01→20:49)
[2019-06-15 20:23] VITALS: BP 123/76; PULSE 70; RESP 16; TEMP 37; O2SAT 96
[2019-06-15] MEDS: ATORVASTATIN 20 MG TABLET PO (20:48)
[2019-06-16 00:30] VITALS: BP 126/85; PULSE 76; RESP 18; TEMP 36.2; O2SAT 98
[2019-06-16] MEDS: ACETAMINOPHEN 325 MG TABLET 650 MG PO ×4 (00:31→17:30)
[2019-06-16] MEDS: PIPERACILLIN-TAZO 3.375 GM/50 ML FROZ.PIGGY IV ×4 (02:33→20:42)
[2019-06-16] MEDS: fentaNYL 100 MCG/2 ML INJ 50 MCG IV ×5 (03:17→22:29)
[2019-06-16] MEDS: DEXTROSE 5%-0.45NS W/KCL 20MEQ 1,000 ML 75 MEQ IV (04:30)
[2019-06-16] MEDS: PANTOPRAZOLE 40 MG TABLET PO (06:19)
[2019-06-16] MEDS: SUBOXONE 8MG/2MG 1 EACH SL ×2 (06:19→13:34)
[2019-06-16 08:32] VITALS: BP 125/81; PULSE 69; RESP 15; TEMP 36.6; O2SAT 97
[2019-06-16] MEDS: LACTOBACILLUS ACIDOPHILUS TABLET 1 EACH PO ×3 (08:38→17:30)
[2019-06-16] MEDS: METHOCARBAMOL 500 MG TABLET 750 MG PO ×4 (08:38→20:35)
[2019-06-16] MEDS: GABAPENTIN 300 MG CAPSULE PO ×3 (08:38→20:35)
[2019-06-16] MEDS: ACYCLOVIR 5% OINT 15 GM 1 APPLIC TOP ×3 (08:38→20:33)
[2019-06-16] MEDS: buPROPion XL 150 MG TAB 300 MG PO (08:38)
[2019-06-16] MEDS: ENOXAPARIN 40 MG/0.4 ML SYRINGE SUBCUT (08:38)
--- NOTE | 2019-06-16 09:35 | PM.PN.1 ---
Subjective Date Patient Seen: 06/16/19 Time Patient Seen: 09:35 Interval history: PATIENT HAS BEEN HOSPITALIZED FOR SEVERAL DAYS WITH A MICRO PERFORATION OF HIS COLO COLONIC ANASTOMOSIS. SUBJECTIVELY HE IS FEELING VERY WELL NO NAUSEA VOMITING VERY MINIMAL DISCOMFORT PASSING FLATUS NO BOWEL MOVEMENT Exam Vital Signs (past 8 hours): - 06/16/19 08:32 Temperature 97.8 F Pulse Rate 69 Respiratory Rate 15 Blood Pressure 125/81 Pulse Oximetry 97 Oxygen Delivery Method Room Air Oxygen Flow Rate 0 Narrative Exam Narrative: PATIENT IS ALERT AND ORIENTED AFEBRILE. ABDOMEN IS SLIGHTLY TENDER IN THE LEFT LOWER QUADRANT THE PATIENT STATES THIS IS MUCH IMPROVED. Objective Labs Result Diagrams: 06/15/19 04:57 06/13/19 12:21 Assessment & Plan Assessment & Plan narrative: PATIENT IS IMPROVING WITH RESOLUTION OF A MICRO PERFORATION OF HIS ANASTOMOSIS. THERE IS NO SIGN OF PERITONITIS I DO NOT THINK THE ANASTOMOSIS IS LEAKING ANY FURTHER. WE WILL START A CLEAR LIQUID DIET. I ADVISED THE PATIENT TO STOP IF HE HAS INCREASED PAIN OR NAUSEA. Quality VTE Deep Vein Thrombosis/Pulmonary Embolism Present on Admission: No
[2019-06-16] MEDS: TESTOSTERONE CYPIONATE 200 MG/ML VIAL IM (10:27)
--- NOTE | 2019-06-16 11:31 | CM.DPC ---
DCP Cont: Checked in with patient this morning. He was walking around in his room. Alert and oriented. Surgeon had seen patient today. He will be starting a clear liquid diet today. He has not yet had bowel movement, but is passing flatus. P: DCP to continue to be available for any concerns, or any needs before discharge. Aurea De Paz RN/Textiles Sales Representative
--- NOTE | 2019-06-16 14:21 | PC.NURSE ---
Day Shift Note Independent, walking frequently in halls. Reports pain well controlled on current pain regimen. Denies nausea, tolerating clears without issue. VSS. Continues on RA with sats 97%. Call light within reach, using appropriately to make needs known.
[2019-06-16 16:12] VITALS: BP 133/88; PULSE 79; RESP 19; TEMP 36.6; O2SAT 98
--- NOTE | 2019-06-16 18:03 | PC.NURSE ---
chelsie samson pt ambulating in room ad nikki. Denies N/V. Pt says he is tired of clear liquids, wishes for full liquids. Medicated ointment applied to right lip cold sore lesion.
[2019-06-16] MEDS: ATORVASTATIN 20 MG TABLET PO (20:35)
[2019-06-16 20:43] VITALS: BP 134/82; PULSE 79; RESP 19; TEMP 36.8; O2SAT 98
[2019-06-16 23:46] VITALS: BP 113/64; PULSE 69; RESP 20; TEMP 36.9; O2SAT 96
[2019-06-17] MEDS: ACETAMINOPHEN 325 MG TABLET 650 MG PO ×5 (00:23→23:37)
[2019-06-17] MEDS: DEXTROSE 5%-0.45NS W/KCL 20MEQ 1,000 ML 50 MEQ IV (02:23)
[2019-06-17] MEDS: PIPERACILLIN-TAZO 3.375 GM/50 ML FROZ.PIGGY IV ×4 (02:23→20:54)
[2019-06-17] MEDS: SUBOXONE 8MG/2MG 1 EACH SL ×2 (05:54→12:27)
[2019-06-17] MEDS: PANTOPRAZOLE 40 MG TABLET PO (05:54)
[2019-06-17] MEDS: fentaNYL 100 MCG/2 ML INJ 50 MCG IV ×3 (05:55→20:55)
[2019-06-17 08:08] VITALS: BP 120/76; PULSE 70; RESP 16; TEMP 36.6; O2SAT 98
[2019-06-17] MEDS: ACYCLOVIR 5% OINT 15 GM 1 APPLIC TOP ×3 (08:40→20:53)
[2019-06-17] MEDS: LACTOBACILLUS ACIDOPHILUS TABLET 1 EACH PO ×3 (08:40→19:11)
[2019-06-17] MEDS: buPROPion XL 150 MG TAB 300 MG PO (08:41)
[2019-06-17] MEDS: METHOCARBAMOL 500 MG TABLET 750 MG PO ×4 (08:41→20:54)
[2019-06-17] MEDS: ENOXAPARIN 40 MG/0.4 ML SYRINGE SUBCUT (08:41)
[2019-06-17] MEDS: GABAPENTIN 300 MG CAPSULE PO ×3 (08:41→20:53)
--- NOTE | 2019-06-17 14:47 | PC.NURSE ---
Day Shift Note Continues to take multiple walks (4x) in halls independently. Reports abdominal pain much improved. Tolerating full liquids without nausea. Passing flatus but no BM at this time. Peripheral IV expires today - discussed with pt and pt declines restart at this time due to possible discharge tomorrow. Current IV to left forearm flushes well without pain, no erythema or leaking.
[2019-06-17 15:49] VITALS: BP 134/92; PULSE 72; RESP 16; TEMP 36.6; O2SAT 97
[2019-06-17 20:49] VITALS: BP 145/86; PULSE 68; RESP 20; TEMP 36.4; O2SAT 99
[2019-06-17] MEDS: ATORVASTATIN 20 MG TABLET PO (20:54)
[2019-06-17 23:30] VITALS: BP 162/95; PULSE 74; RESP 18; TEMP 36.5; O2SAT 100
--- NOTE | 2019-06-17 23:44 | PC.NURSE ---
Shift note: Pt reported that he had a bowel movement but that he had flushed in on the instructions of prior shift. Pt had taken pictures of it in the event that nursing staff wanted to visualize. Stool was moderate in size, pebbly and brown in nature. Pt in good spirits about having a bowel movement and going home soon.
[2019-06-18] MEDS: PIPERACILLIN-TAZO 3.375 GM/50 ML FROZ.PIGGY IV ×3 (03:20→14:07)
[2019-06-18] MEDS: ACETAMINOPHEN 325 MG TABLET 650 MG PO ×2 (06:06→13:44)
[2019-06-18] MEDS: PANTOPRAZOLE 40 MG TABLET PO (06:07)
[2019-06-18] MEDS: SUBOXONE 8MG/2MG 1 EACH SL ×2 (06:07→13:45)
[2019-06-18 08:00] VITALS: BP 145/86; PULSE 72; RESP 16; TEMP 37; O2SAT 96
[2019-06-18] MEDS: ACYCLOVIR 5% OINT 15 GM 1 APPLIC TOP (09:50)
[2019-06-18] MEDS: ENOXAPARIN 40 MG/0.4 ML SYRINGE SUBCUT (09:50)
[2019-06-18] MEDS: GABAPENTIN 300 MG CAPSULE PO (09:50)
[2019-06-18] MEDS: METHOCARBAMOL 500 MG TABLET 750 MG PO (09:50)
[2019-06-18] MEDS: LACTOBACILLUS ACIDOPHILUS TABLET 1 EACH PO ×2 (09:50→13:45)
[2019-06-18] MEDS: buPROPion XL 150 MG TAB 300 MG PO (09:50)
--- NOTE | 2019-06-18 14:52 | P.DS_ITS ---
History of Present Illness Date Patient Seen: 06/18/19 Time Patient Seen: 14:47 Chief complaint: ABDOMINAL PAIN Narrative: 39-year-old man presented to the hospital 7 days status post laparos copic left segmental colectomy for benign stricture. He had been doing quite well tolerating a regular diet returning to his usual activities then developed significant left lower quadrant pain and feeling ill. An outpatient lab draw demonstrated a leukocytosis. He was admitted where CT scan demonstrated a small foci of extraluminal air at the level of his hand-sewn anastomosis. He was started on antibiotics. Because the anastomosis appeared intact there was no adjacent free fluid there was a minimal amount of adjacent fat stranding -he was felt to have a micro leak. And he was treated non operatively with antibiotic therapy. Within 24 hours of IV antibiotics - pip/melvin -he had a falling leukocytosis and was feeling markedly better. Antibiotics were continued and within 48 hours his white blood cell count normalized. He continued to do well passing flatus and stool. With complete resolution of his pain. His exam became essentially nontender. Discharge Providers Date of admission: 06/13/19 10:58 Discharge Date: 06/18/19 Primary care physician: Kojo Caballero MD Consults: 06/13/19 12:02 Consult to Discharge Planning Routine Comment: Discharge provider: Kojo Caballero Summary Discharge Diagnosis: Anastomotic micro leak -left colon Hospital Course: Please see HPI Anastomotic micro leak treated with antibiotics, without surgery, patient improved and was able to be discharged home Status at Discharge Cognitive/behavioral status at discharge: oriented Functional status at discharge: independent ambulation Overall status at discharge: patient is progressing back to baseline Time Spent with Patient Less than 30 minutes Exam Vital Signs (past 8 hours): - 06/18/19 08:00 Temperature 98.6 F Pulse Rate 72 Respiratory Rate 16 Blood Pressure 145/86 H Pulse Oximetry 96 Oxygen Delivery Method Room Air Oxygen Flow Rate 0 Narrative Exam Narrative: Well-appearing man in no acute distress, abdomen mildly distended but soft, nontender to palpation. Patient is able to stand erect and jump up and down forcibly without pain Objective Labs Result Diagrams: 06/15/19 04:57 06/13/19 12:21 Discharge Plan Discharge Plan Patient Disposition: Home Discharge Med Rec/Prescriptions Prescriptions: New amoxicillin-pot clavulanate 500-125 mg tablet 1 tab PO TID Qty: 24 RF: 0 Continued hydrochlorothiazide 25 mg Tablet 25 mg PO DAILY RF: 0 bupropion HCl 300 mg Tablet Extended Release 24 Hr 300 mg PO QAM RF: 0 buprenorphine-naloxone [Suboxone] 8-2 mg Film 1 film BUCCAL BID RF: 0 testosterone cypionate 1 dose IM DIRECTED RF: 0 pantoprazole 40 mg Tablet,Delayed Release (Dr/Ec) 40 mg PO DAILY RF: 0 atorvastatin 20 mg Tablet 20 mg PO DAILY RF: 0 Follow up/Referrals: Kojo Caballero MD [Physician] - 06/25/19 3:15 pm Leticia Olivarez MD [Primary Care Provider] - Provider Discharge Instructions Diet: Full Liquid Activity: no lifting over 15lbs for 4 week. Ok for usual activities Skin/Wound/Dressing Care Report to your healthcare provider any signs of infection, such as:: chills, fever and increased pain Visit Report/Discharge Packet Instructions: Amoxicillin and Clavulanic Acid, Full Liquid Diet Discharge Data Primary Care Provider: Leticia Olivarez Attending Provider: Leticia Olivarez Admit Date/Time: 06/13/19 10:58 Quality VTE Deep Vein Thrombosis/Pulmonary Embolism Present on Admission: No
--- NOTE | 2019-06-18 15:01 | PC.NURSE ---
Discharge pt stated pain at 01/07, only requested tylenol for pain. Returned to pt his 8 remaining suboxone which were brought up from the pharmacy. PIV removed after last dose of Abx infused. pt received Rx for PO abx. pt took all belongings with him. d/c instructions provided to pt. aware to contact MD any additional questions or concerns and for f/u apt. pt walked out and asked to go to [facility], RN escorted him there.
--- NOTE | 2019-06-18 15:06 | CM.DPC ---
DCP: continued: pt is now ok'd by surgeon for home d/c. He has been up, mobile and expressing eagerness for the d/c. Went to room to check in; room being cleaned. Pt has left for home as per plan.
== END 2019-06-18 14:50 | disposition home or self-care (01) | DRG 393 ==
LOC: ICU 06-17 13:58 → AC 06-17 21:26
PROVIDERS: Surgery; Admitting Provider Surgery; PCP Surgery; Visit Provider Surgery
DX: K91.89 Other postprocedural complications and disorders of digestive system (principal); K63.1 Perforation of intestine (nontraumatic); I10 Essential (primary) hypertension; K21.9 Gastro-esophageal reflux disease without esophagitis; Z87.891 Personal history of nicotine dependence
CPT/HCPCS: 36415; 74177; 80053; 81001; 85025; 85610; 85730; 87040; 87797; J1071; J1170; J1650; J2543; J3010; Q9967

== ENCOUNTER 2019-12-31 06:52 | Day surgery (SDC) | payer BC, SELFPAY ==
--- NOTE | 2019-12-31 | PATH_ITS ---
[facility] Accession Number: [id number] . 01 Material submitted: . colon - SIGMOID ANASTOMOSIS BIOPSY . 02 Diagnosis: Sigmoid Colon, Anastomosis, Biopsy: Colonic mucosa with mild superficial hyperplastic-type changes and extravasated red blood cells in the lamina propria. Negative for dysplasia and malignancy. V 01/01/2020 1113 Local . 02 Comment: The extravasated red blood cells in the lamina propria may be due to anastomotic site location, recent trauma, or may be procedure related. . 02 Electronically signed: . Isa Suarez MD, Pathologist NPI- [id number] . 01 Gross description: . SIGMOID ANASTOMOSIS BIOPSY: Received in formalin are 2 fragment(s) of malin, soft tissue measuring 0.1 x 0.1 x 0.1 cm in aggregate submitted entirely in 1 cassette(s) /[facility] [place] 12/31/2019 2241 Local . 02 Pathologist provided ICD-10: K56.699 . 02 CPT . 786278 Performed at: 01 [facility] [address] [facility], [place], [place] [id number] MD Marcos Chou MD Phone: [phone] Performed at: 02 [facility] [address] [place], [place] [id number] MD Isa Suarez MD Phone: [phone]
[2019-12-31 07:46] VITALS: BP 154/93; PULSE 88; RESP 16; TEMP 36.7; O2SAT 95; BMI 30.7
[2019-12-31] MEDS: SODIUM CHLORIDE 0.9% 1,000 ML 200 ML IV (07:58)
--- NOTE | 2019-12-31 08:17 | PM.PREOP ---
Pre-operative Note Interval Note History & Physical reviewed/Exam performed by Physician: Yes Changes to H&P: No ASA Class (for procedural sedation): II
[2019-12-31 08:56] VITALS: BP 134/91; PULSE 81; RESP 13; TEMP 36.1; O2SAT 95
[2019-12-31] MEDS: MIDAZOLAM 5 MG/5 ML VIAL IV (08:56)
--- NOTE | 2019-12-31 08:56 | PM.OP.ENDO ---
Operative Date/Time/Diagnoses Date of procedure: 12/31/19 Time of procedure: 08:56 Pre-op diagnosis: Anastomotic stricture Post-op diagnosis: same Procedure & Clinicians Study performed: Sigmoidoscopy Same procedure as scheduled: Yes Indications: 39-year-old male status post sigmoid resection with anastomotic leak and now evidence of a anastomotic stricture Surgeon: Collins Alanis Procedure Notes SCOAP/Timeout: Performed Procedure in detail: Patient placed in left lateral decubitus position. Time out was performed. Procedural sedation was administered with Versed and Fentanyl. A rectal exam demonstrated no external hemorrhoids no internal masses. Colonoscopy scope was placed into the rectum and advanced. The anastomosis was encountered at approximately 30 cm from the anal verge period was significantly narrowed. I was able to advanced the colonoscope through the anastomosis with great difficulty. The anastomosis was tattooed as well as biopsies were taken. This appearance is consistent with a anastomotic stricture. Scope withdrawal time: NA Sedation minutes: 20 Findings: stricture Specimen(s): other (Sigmoid anastomosis) Complications: none Impression: Anastomotic stricture Post-procedure Recommendations: Other recommendation (Office followup) Follow up: weeks (2) Disposition: same day surgery
[2019-12-31] MEDS: fentaNYL 250 MCG/5 ML INJ IV (08:57)
[2019-12-31 09:01] VITALS: BP 115/75; PULSE 84; RESP 13; O2SAT 94
[2019-12-31 09:06] VITALS: BP 122/82; PULSE 89; RESP 16; O2SAT 96
[2019-12-31 09:11] VITALS: BP 111/78; PULSE 82; RESP 13; O2SAT 95
[2019-12-31 09:27] VITALS: BP 122/84; PULSE 86; RESP 16; TEMP 36.2; O2SAT 95
== END 2019-12-31 09:32 | disposition home or self-care (01) ==
PROVIDERS: PCP Emergency Medicine Emergency Medical Services; Referring Provider Emergency Medicine Emergency Medical Services; Visit Provider Surgery
PROC: 0DJD8ZZ Inspection of Lower Intestinal Tract, Via Natural or Artificial Opening Endoscopic (ICD-10-PCS; CPT 45378; principal; 2019-12-31 08:30)
DX: K56.699 Other intestinal obstruction unspecified as to partial versus complete obstruction (principal); Z90.49 Acquired absence of other specified parts of digestive tract
CPT/HCPCS: 45331; 99152; J2250; J3010

== ENCOUNTER 2020-03-31 11:40 | Emergency (ER) | payer BC, SELFPAY ==
[2020-03-31 11:49] VITALS: BP 150/100; PULSE 100; RESP 13; TEMP 36.6; O2SAT 97
[2020-03-31 12:38] LABS: Add Manual Diff / Slide Review NO; Basophils Absolute Auto 100 /uL (0-100); Basophils Percent Auto 0.8 % (0-2); Eosinophils Absolute Auto 100 /uL (0-450); Eosinophils Percent Auto 0.9 % (2-4); Hematocrit 53.8 % (41-53); Hemoglobin 18.9 g/dL (13.5-17.5); Lymphocytes Absolute Auto 2600 /uL (1100-4500); Lymphocytes Percent Auto 28.6 % (25-40); Mean Corpuscular HGB Conc 35.2 % (30-36); Mean Corpuscular Hemoglobin 31.9 PG (26-34); Mean Corpuscular Volume 90.6 fL (80-100); Monocytes Absolute Auto 800 /uL (0-900); Monocytes Percent Auto 8.3 % (3-14); Neutrophils Absolute Auto 5600 /uL (1500-7000); Neutrophils Percent Auto 61.4 % (50-75); Platelet Count 249 X10^3/uL (150-400); Red Blood Cell Count 5.94 X10^6/uL (4.5-5.9); Red Cell Distribution Width 13.2 % (11.6-14.8); White Blood Cell Count 9.2 X10^3/uL (4.5-11.0)
[2020-03-31 12:40] LABS: Lactate (Lactic Acid) 1.7 mmol/L (0.7-2.1)
[2020-03-31 12:41] LABS: Alanine Aminotransferase 38 IU/L (<50); Albumin Globulin Ratio 1.5 (1.0-2.8); Alkaline Phosphatase 102 U/L (38-126); Aspartate Aminotransferase 40 IU/L (17-59); Bilirubin Total 0.8 mg/dL (0.2-1.3); Blood Urea Nitrogen 17 mg/dL (9-20); Calcium 9.7 mg/dL (8.4-10.2); Carbon Dioxide 28 mmol/L (22-32); Chloride 96 mmol/L (98-107); Estimated Glomerular Filt Rate > 60.0 mL/min (>60); Globulin 3.4 g/dL (1.7-4.1); Glucose 157 mg/dL (70-100); HEMOLYSIS 35 (0-50); Lipase 36 U/L (23-300); Potassium 4.1 mmol/L (3.4-5.1); Sodium 135 mmol/L (137-145); Total Protein 8.4 g/dL (6.3-8.2)
--- NOTE | 2020-03-31 12:48 | ED_ITS ---
HPI - Abdominal Pain <TJ Hong - Last Filed: 03/31/20 22:58> General Chief Complaint: Abdominal Pain Stated Complaint: Lower Left stomach pain Time Seen by Provider: 03/31/20 11:51 Source: patient Mode of arrival: Ambulatory Limitations: no limitations History of Present Illness HPI narrative: This is a 40-year-old male, former smoker, who presents to ED with intermittent left lower abdominal pain for last 6 months which is now more consistent. Patient reports he has history of sigmoid stricture and had a colectomy in 06/05/2019 with subsequent surgery due to micro perforation of colon of anastomosis. Patient reports patient needs another surgery and was scheduled in 02/26/2020 but due to COVID-19 pen damage this schedule has been canceled and postponed it at this time. Patient reports constipation symptoms and he has been taking laxatives but he has stopped taking the medication about 3 days ago since he went back to work. Patient denies fever, chills, nausea or vomiting. Patient reports pain is 2 to 3/10 currently but at times it increases to 8/10 and describes as gas pain which lasts for a few minutes up to 12 hours. Related Data Home Medications Medication Instructions Recorded Confirmed buprenorphine-naloxone [Suboxone] 1 film BUCCAL BID 05/29/19 02/19/20 bupropion HCl 300 mg PO QAM 05/29/19 02/19/20 hydrochlorothiazide 25 mg PO DAILY 05/29/19 02/19/20 pantoprazole 40 mg PO BID 05/29/19 02/19/20 testosterone cypionate 1 dose IM DIRECTED 05/29/19 02/19/20 atorvastatin 20 mg PO DAILY 05/30/19 02/19/20 lisinopril 10 mg PO DAILY 12/31/19 02/19/20 Previous Rx's Medication Instructions Recorded neomycin 500 mg tablet 1 g PO TID 0 Days #6 tab 01/17/20 erythromycin 500 mg tablet 1,000 mg PO TID #6 tab 01/18/20 naproxen 500 mg tablet 500 mg PO BID #30 tab 02/19/20 Allergies Allergy/AdvReac Type Severity Reaction Status Date / Time lorazepam [From Ativan] AdvReac Intermediate Hospitalized Verified 02/19/20 09:45 x1wk Review of Systems <TJ Hong - Last Filed: 03/31/20 22:58> Review of Systems Narrative: General: Denies fever, chills, fatigue, malaise, sweats. HEENT: Denies sinus pain, ear pain, sore throat, difficulty swallowing, dizziness. Respiratory: Denies dyspnea, cough, wheezing, hemoptysis, sputum. Cardiovascular: Denies chest pain, palpitations, orthopnea, edema. Gastrointestinal: See HPI : Denies dysuria, frequency, incontinence, hematuria, urinary retention. Musculoskeletal: Denies weakness, joint pain or bony pain. Skin: Denies rash, skin lesions, or other. Neurologic: Denies weakness, headache, numbness, change in speech, confusion, seizures, incoordination. Psychiatric: No concerning psychosocial issues. 12-point review of systems is negative except for those stated above. Patient History <TJ Hong - Last Filed: 03/31/20 22:58> Medical History Bowel obstruction (Acute) Gastric reflux (Acute) Gouty arthritis of left great toe (Acute) HTN (hypertension) (Acute) Sleep apnea (Acute) Surgical History Hx of hand surgery (Resolved) Hx of knee surgery (Resolved) Hx of shoulder surgery (Resolved) Hx of vasectomy (Resolved) No pertinent past surgical history (Inactive) S/P colectomy (Acute) Family History Grandfather Diabetes mellitus Heart disease Grandmother Diabetes mellitus Stroke Social History marital status: household members: spouse occupational status: employed Smoking Status: Former smoker alcohol intake: current substance use type: does not use Smoking Status: Former smoker alcohol intake frequency: 0-2 drinks per day Substance Use Type: does not use Exam <TJ Hong - Last Filed: 03/31/20 22:58> Narrative Exam Narrative: GEN: Alert, oriented x 3, well appearing and nourished, and in no acute distress. Head: Normal cephalic, atraumatic. No scalp or temporal tenderness, palpable mass or rash. EYES: Pupils are equal, round, and reactive to light and accommodation. Extraocular muscles are intact bilaterally. There is no subconjunctival hemorrhage, exudate and sclera non-icteric. ENT: Hearing grossly intact. Nose without bleeding, purulent discharge or dev iation. Mucous membrane moist, no mucosal lesion. Throat without erythema, tonsillar hypertrophy or exudate. Uvula in midline, airway patent. Neck: Trachea in midline. No JVD, non-tender without lymphadenopathy. No masses or thyroid megaly. Supple, non-tender and no meningeal signs. CARDIAC: Normal regular rate and rhythm without murmurs, gallops, or rubs. No chest wall tenderness. No peripheral edema, cyanosis or pallor. Capillary refill is less than 2 seconds. RESPIRATORY: Lungs are clear to auscultate bilaterally. No cough, wheezes, rales, or rhonchi. No stridor, respiratory distress, increase work of breathing, or accessary muscle used. ABD: Abdomen soft and non-distended. Left upper>lower quadrant tender to palpate. No guarding or rebound tenderness to palpate. Bowel sounds are normal in all 4 quadrants. There is no palpable masses or organomegaly. EXT: Full painless ROM of all extremities with no loss of sensation, strength, effusion or edema. SKIN: Warm, dry, normal color for patient. No erythema, lesions or rash over visible areas. BACK: Nontender without deformity or crepitance. No flank tenderness. NEUROLOGICAL: Alert and oriented to place, time and person. Sensation and motor function intact bilaterally. No facial droops, dysphasia. PSYCHIATRIC: Good judgement and reason, without hallucinations, abnormal affect or abnormal behaviors during the examination. Initial Vital Signs Initial Vital Signs: Vital Signs Temperature 97.9 F 03/31/20 11:49 Pulse Rate 100 H 03/31/20 11:49 Respiratory Rate 13 03/31/20 11:49 Blood Pressure 150/100 H 03/31/20 11:49 Pulse Oximetry 97 03/31/20 11:49 <Darwin Bryson MD - Last Filed: 04/01/20 08:20> Initial Vital Signs Initial Vital Signs: Vital Signs Temperature 97.9 F 03/31/20 11:49 Pulse Rate 100 H 03/31/20 11:49 Respiratory Rate 13 03/31/20 11:49 Blood Pressure 150/100 H 03/31/20 11:49 Pulse Oximetry 97 03/31/20 11:49 Scores <David MadisonTJ George - Last Filed: 03/31/20 22:58> GCS Thuan coma scale eye opening: Spontaneous Thuan coma scale verbal response: Orientated Thuan coma scale motor response: Obey commands Thuan coma scale total score: 15 Course <[facility] TJ Everett - Last Filed: 03/31/20 22:58> Orders Ordered: Discontinued Medications Sodium Chloride (Normal Saline 0.9%) 500 mls @ 1,000 mls/hr IV BOLUS ONE Stop: 03/31/20 13:18 Last Admin: 03/31/20 13:02 Dose: 1,000 mls/hr Documented by: ELISABET Vital Signs Vital signs: Vital Signs - 8 hr 03/31/20 14:07 Temperature 97.5 F L Pulse Rate 68 Respiratory Rate 12 Blood Pressure 139/87 Pulse Oximetry 98 <Darwin Bryson MD - Last Filed: 04/01/20 08:20> Orders Ordered: Discontinued Medications Sodium Chloride (Normal Saline 0.9%) 500 mls @ 1,000 mls/hr IV BOLUS ONE Stop: 03/31/20 13:18 Last Admin: 03/31/20 13:02 Dose: 1,000 mls/hr Documented by: ELISABET Vital Signs Vital signs: Vital Signs - 8 hr 03/31/20 14:07 Temperature 97.5 F L Pulse Rate 68 Respiratory Rate 12 Blood Pressure 139/87 Pulse Oximetry 98 MDM - Abdominal Pain <[facility] TJ Everett - Last Filed: 03/31/20 22:58> Differential Diagnosis Differential diagnosis: Likely abdominal pain and other (sigmoid stricture, bowel obstruction) Medical Records Attestation: I reviewed the patient's medical records. Lab Data Attestation: I reviewed the patient's lab results. Result diagrams: 03/31/20 12:11 03/31/20 12:11 Labs: Lab Results 03/31/20 03/31/20 03/31/20 Range/Units 12:11 12:11 12:11 WBC 9.2 (4.5-11.0) X10^3/uL RBC 5.94 H (4.5-5.9) X10^6/uL Hgb 18.9 H (13.5-17.5) g/dL Hct 53.8 H (41-53) % MCV 90.6 (80-100) fL MCH 31.9 (26-34) PG MCHC 35.2 (30-36) % RDW 13.2 (11.6-14.8) % Plt Count 249 (150-400) X10^3/uL Neut % (Auto) 61.4 (50-75) % Lymph % (Auto) 28.6 (25-40) % [place] % (Auto) 8.3 (3-14) % Eos % (Auto) 0.9 L (2-4) % Baso % (Auto) 0.8 (0-2) % Neut # (Auto) 5600 (0883-6880) /uL Lymph # (Auto) 2600 (3499-3930) /uL [place] # (Auto) 800 (0-900) /uL Eos # (Auto) 100 (0-450) /uL Baso # (Auto) 100 (0-100) /uL Sodium 135 L (137-145) mmol/L Potassium 4.1 (3.4-5.1) mmol/L Chloride 96 L (98-107) mmol/L Carbon Dioxide 28 (22-32) mmol/L BUN 17 (9-20) mg/dL Creatinine 1.06 (0.66-1.25) mg/dL Estimated GFR > 60.0 (>60) mL/min BUN/Creatinine Ratio 16.0 (6-22) Glucose 157 H (70-100) mg/dL Lactate 1.7 (0.7-2.1) mmol/L Calcium 9.7 (8.4-10.2) mg/dL Total Bilirubin 0.8 (0.2-1.3) mg/dL AST 40 (17-59) IU/L ALT 38 (<50) IU/L Alkaline Phosphatase 102 (38-126) U/L Total Protein 8.4 H (6.3-8.2) g/dL Albumin 5.0 (3.5-5.0) g/dL Globulin 3.4 (1.7-4.1) g/dL Albumin/Globulin Ratio 1.5 (1.0-2.8) Lipase 36 (23-300) U/L Point of care testing: Urine Dip Bedside Urine Glucose Negative Bedside Urine Bilirubin - Negative Bedside Urine Ketone - Negative Urine Specific [place] 1.015 Bedside Urine Occult Blood - Negative Bedside Urine pH 7.0 Bedside Urine Protein - Negative Bedside Urine Urobilinogen - Negative Bedside Urine Nitrite - Negative Bedside Urine Leukocytes - Negative Esterase MDM Narrative Medical decision making narrative: This is a 40-year-old gentleman who is waiting for surgery to relieve sigmoid stricture who has history of sigmoid stricture with colectomy and subsequent surgery for micro perforation of colonic anastomosis presented to ED with ongoing intermittent abdominal discomfort for months which is more consistent. Patient denies constitutional symptoms such as fever, chills, nausea or vomiting. Patient has stopped taking laxatives last 2- 3 days since patient return to were and worsening symptoms. Patient is afebrile with within normal vital signs. H&H has increased to 18.9/53.8 from previous baseline of . Chemistry test were unremarkable except mildly decreased s odium level of 135 and chloride of 96 with mild elevation of serum glucose of 157. Lactate level is normal of 1.7. Dr. Alanis was consulted with patient's physical findings, vital signs and lab results. Dr. Alanis is familiar with patient's history and he was recommended it is not required for further imaging test. He is considering moving his surgery date sooner and patient will be contacted by his clinic. Patient advised to continue with laxatives and return precautions were discussed. Patient advised to contact [facility] if he does not hear back from them within 24 hour period. Patient verbalized understanding and in agreement with the treatment plan. <Darwin Bryson MD - Last Filed: 04/01/20 08:20> Lab Data Labs: Lab Results 03/31/20 03/31/20 03/31/20 Range/Units 12:11 12:11 12:11 WBC 9.2 (4.5-11.0) X10^3/uL RBC 5.94 H (4.5-5.9) X10^6/uL Hgb 18.9 H (13.5-17.5) g/dL Hct 53.8 H (41-53) % MCV 90.6 (80-100) fL MCH 31.9 (26-34) PG MCHC 35.2 (30-36) % RDW 13.2 (11.6-14.8) % Plt Count 249 (150-400) X10^3/uL Neut % (Auto) 61.4 (50-75) % Lymph % (Auto) 28.6 (25-40) % [place] % (Auto) 8.3 (3-14) % Eos % (Auto) 0.9 L (2-4) % Baso % (Auto) 0.8 (0-2) % Neut # (Auto) 5600 (2776-9395) /uL Lymph # (Auto) 2600 (2570-4932) /uL [place] # (Auto) 800 (0-900) /uL Eos # (Auto) 100 (0-450) /uL Baso # (Auto) 100 (0-100) /uL Sodium 135 L (137-145) mmol/L Potassium 4.1 (3.4-5.1) mmol/L Chloride 96 L (98-107) mmol/L Carbon Dioxide 28 (22-32) mmol/L BUN 17 (9-20) mg/dL Creatinine 1.06 (0.66-1.25) mg/dL Estimated GFR > 60.0 (>60) mL/min BUN/Creatinine Ratio 16.0 (6-22) Glucose 157 H (70-100) mg/dL Lactate 1.7 (0.7-2.1) mmol/L Calcium 9.7 (8.4-10.2) mg/dL Total Bilirubin 0.8 (0.2-1.3) mg/dL AST 40 (17-59) IU/L ALT 38 (<50) IU/L Alkaline Phosphatase 102 (38-126) U/L Total Protein 8.4 H (6.3-8.2) g/dL Albumin 5.0 (3.5-5.0) g/dL Globulin 3.4 (1.7-4.1) g/dL Albumin/Globulin Ratio 1.5 (1.0-2.8) Lipase 36 (23-300) U/L Point of care testing: Urine Dip Bedside Urine Glucose Negative Bedside Urine Bilirubin - Negative Bedside Urine Ketone - Negative Urine Specific [place] 1.015 Bedside Urine Occult Blood - Negative Bedside Urine pH 7.0 Bedside Urine Protein - Negative Bedside Urine Urobilinogen - Negative Bedside Urine Nitrite - Negative Bedside Urine Leukocytes - Negative Esterase Discharge Plan Departure Patient Disposition: Home Clinical Impression: Anastomotic stricture of colorectal region Abdominal pain Qualifiers: Abdominal location: unspecified location Qualified Code(s): R10.9 - Unspecified abdominal pain Discharge Date/Time: 03/31/20 14:09 Instructions: DI for Mechanical Bowel Obstruction, DI for Abdominal Pain-Adult Activity Restrictions/Additional Instructions: You have been diagnosed with [ongoing abdominal pain and colonic stricture. I spoke with Dr. hopkins today and his plan is moved your surgery day sooner. Please contact his office if you do not hear from [facility] within 24 hours. The lab test today's were unremarkable except it appears to be you have mildly concentrated blood and you have received 500 mL of normal saline fluid]. What to do: *Take your medications as directed. Please restart stool softener/MiraLax. *Follow up with your primary care provider in 2-3 days, call for an appointment. Let them know you were seen in the ED and that we asked you to be seen in follow up. *Return to ED if you have any new, worsening, or concerning symptoms, such as [chest pain, breathing difficulty, unable to tolerate fluids, fever, or any worsening symptoms]. Prescriptions: No Action naproxen 500 mg tablet 500 mg PO BID Qty: 30 RF: 0 neomycin 500 mg tablet 1 g PO TID 0 Days Qty: 6 RF: 0 erythromycin 500 mg tablet 1,000 mg PO TID Qty: 6 RF: 0 hydrochlorothiazide 25 mg Tablet 25 mg PO DAILY RF: 0 bupropion HCl 300 mg Tablet Extended Release 24 Hr 300 mg PO QAM RF: 0 buprenorphine-naloxone [Suboxone] 8-2 mg Film 1 film BUCCAL BID RF: 0 testosterone cypionate 1 dose IM DIRECTED RF: 0 pantoprazole 40 mg Tablet,Delayed Release (Dr/Ec) 40 mg PO BID RF: 0 atorvastatin 20 mg Tablet 20 mg PO DAILY RF: 0 lisinopril 10 mg Tablet 10 mg PO DAILY RF: 0 Referrals: Collins Alanis MD [Physician] - Chriss Snow MD [Primary Care Provider] - <aDrwin Bryson MD - Last Filed: 04/01/20 08:20> [facility] Attestation: I was immediately available in the department for consultation. This documentation has been reviewed and I agree with assessment and plan. Supervised by Darwin Bryson MD
[2020-03-31] MEDS: SODIUM CHLORIDE 0.9% 500 ML 1000 ML IV (13:02)
[2020-03-31 14:07] VITALS: BP 139/87; PULSE 68; RESP 12; TEMP 36.4; O2SAT 98
--- NOTE | 2020-04-08 19:17 | PC.NURSE ---
~ iv fluids started at 1230 and ended 1400/ 1000cc infused
== END 2020-03-31 14:09 | disposition home or self-care (01) ==
PROVIDERS: Emergency Provider Nurse Practitioner Family; PCP Emergency Medicine Emergency Medical Services
DX: K91.30 Postprocedural intestinal obstruction, unspecified as to partial versus complete (principal); R10.9 Unspecified abdominal pain
CPT/HCPCS: 36415; 80053; 81003; 83605; 83690; 85025; 96360; 99284

== ENCOUNTER → 2020-04-04 09:03 | Outpatient (CLI) | payer BC, SELFPAY ==
[2020-04-04 13:45] LABS: COVID19 -Nasal RAPID Negative (Negative)
== END ==
PROVIDERS: PCP Emergency Medicine Emergency Medical Services; Visit Provider Family Medicine
DX: Z01.812 Encounter for preprocedural laboratory examination (principal)
CPT/HCPCS: 87635

== ENCOUNTER 2020-04-09 11:04 | Observation (INO) | payer BC, SELFPAY ==
[2020-04-02 12:44] VITALS: BMI 32.5
[2020-04-08] VITALS (22 sets, daily range): BP systolic 114–152; BP diastolic 50–106; PULSE 82–105; RESP 8–20; TEMP 36.7–37.9; O2SAT 93–99; BMI 30.3
--- NOTE | 2020-04-08 07:12 | PM.HP.1 ---
History of Present Illness History of Present Illness Date Patient Seen: 04/08/20 Time Patient Seen: 07:12 Chief complaint: [id number] SIGMOIDECTOMY *URETERAL STENTS Narrative: Marcos is a 40-year-old man who underwent a laparoscopic left hemicolectomy with an end and anastomosis May 2019. He had the operation for a benign possibly ischemic stricture. Following his surgery he had anastomotic leak was managed conservatively but unfortunately developed 2nd stricture at the anastomosis. He has been quite symptomatic from this suffering severe for for function limiting constipation. I performed a colonoscopy on him several months ago which I could barely pass the scope through the anastomotic stricture biopsy of this demonstrates benign disease. He is here today for a laparoscopic colectomy risks, resection of his stricture. He is in his usual state of health there been no interval changes. Patient History Medical History Bowel obstruction (Acute) Gastric reflux (Acute) Gouty arthritis of left great toe (Acute) HLD (hyperlipidemia) (Acute) HTN (hypertension) (Acute) Sleep apnea (Acute) Surgical History Hx of hand surgery (Resolved) Hx of knee surgery (Resolved) Hx of shoulder surgery (Resolved) Hx of vasectomy (Resolved) S/P colectomy (Acute 06/05/19) Family & Social History Family History Grandfather Diabetes mellitus Heart disease Grandmother Diabetes mellitus Stroke Social History: household members spouse Prior Living Arrangements House Safety & Behavioral: Feels Safe in Current Yes Environment Been Physically Hurt or No Threatened By a Person Suicidal Ideation Description None Suicide Plan Description No Plan Tobacco & Substance use: Tobacco type cigarettes Smoking Status Former smoker alcohol intake current alcohol intake frequency 0-2 drinks per day Substance Use Type does not use Meds Home Medications and Allergies Home Medications Medication Instructions Recorded Confirmed Type buprenorphine-naloxone [Suboxone] 1 film BUCCAL BID 05/29/19 04/02/20 History bupropion HCl 300 mg PO QAM 05/29/19 04/02/20 History hydrochlorothiazide 25 mg PO DAILY 05/29/19 04/02/20 History pantoprazole 40 mg PO DAILY 05/29/19 04/02/20 History testosterone cypionate 1 dose IM DIRECTED 05/29/19 04/02/20 History atorvastatin 20 mg PO DAILY 05/30/19 04/02/20 History lisinopril 10 mg PO DAILY 12/31/19 04/02/20 History neomycin 500 mg tablet 1 g PO TID 0 Days #6 tab 01/17/20 04/02/20 Rx erythromycin 500 mg tablet 1,000 mg PO TID #6 tab 01/18/20 04/02/20 Rx erythromycin 500 mg tablet 1,000 mg PO TID #6 tab 04/03/20 Rx neomycin 500 mg tablet 1 gram PO TID 0 Days #6 tab 04/03/20 Rx Allergies Allergy/AdvReac Type Severity Reaction Status Date / Time lorazepam [From Ativan] AdvReac Intermediate Memory Verified 04/08/20 07:17 issues Review of Systems Review of Systems Narrative: A 10 point review of systems is negative except as noted in the HPI Exam Narrative Exam Narrative: General-no acute distress, well nourished HEENT-moist mucous membranes, no scleral icterus Neck-supple, no lymphadenopathy Chest- non labored respirations, clear to auscultation bilaterally Cardiac-regular rate no peripheral edema Abdomen-soft, nontender, non distended Extremities-warm, well perfused Neurological-alert and oriented, no focal deficits Assessment & Plan Assessment & Plan narrative: 40-year-old man with 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 He has completed his mechanical and antibiotic bowel prep his questions have been answered and he is in agreement with this plan. Will plan for a epidural for pain management and anticipate hospital stay of 3-5 days.
--- NOTE | 2020-04-08 07:16 | PM.PREOP ---
Pre-operative Note Interval Note History & Physical reviewed/Exam performed by Physician: Yes Changes to H&P: No H&P completed within 30 days and has changed as indicated here:: There are no changes to the history and physical examinations scanned on file.
[2020-04-08] MEDS: LACTATED RINGERS 1,000 ML 42 ML IV ×2 (07:36→11:51)
[2020-04-08] MEDS: PIPERACILLIN-TAZO 3.375 GM/50 ML FROZ.PIGGY IV (07:51)
--- NOTE | 2020-04-08 10:33 | SUR.OPER ---
Lithotomy on padded OR bed, head on pillow, arms secured on padded arm boards at <90 degrees abduction. Legs secured in padded yellow fins stirrups.
--- NOTE | 2020-04-08 11:19 | P.OP_ITS ---
Operative Date/Time/Diagnoses Date of procedure: 04/08/20 Time of procedure: 11:19 Pre-op diagnosis: colonic stricture Post-op diagnosis: same Procedure & Clinicians Procedure: Diagnostic laparoscopy Colonoscopy Same procedure as scheduled: No Indications: This is a 40-year-old male who presented year ago with a left colon stricture underwent a left hemicolectomy followed by anastomotic leak. He subsequently developed a symptomatic colonic stricture which I observed on endoscopy 2 months ago. The stricture barely accommodated the colonoscope and it was tattooed and biopsied pathology demonstrates benign disease. He presented today for a laparoscopic colectomy/resection of the stricture. Surgeon: Collins Alanis Dairy Quality Assurance Officer: Mansoor [place] Click Yes if Unassisted: No Anesthesia Type: General Operative Notes Findings: No evidence of colonic stricture. Laparoscopy the demonstrates no external evidence colonic stricture. The entirety of the remaining left colon to the level of the distal rectum were palpated via the hand port and more soft colonoscope. Intraoperative colonoscopy x2 demonstrated no evidence of stricture, the scope passed easily through the entire colon to the level of the ileocecal valve. Specimen(s): none sent Estimated Blood Loss (mL): 20 Procedure in detail: The patient was brought to the operating room placed supine on the table. Bilateral lower extremity compression devices were applied. He received Zosyn prior to incision. General anesthesia was induced and he was intubated with an endotracheal tube. He was then placed into the lithotomy position appropriately padded. A left ureteral stent was placed by Urology and please see their dictation for further detail. He was then prepped and draped in sterile fashion. Time-out was performed ensure the correct patient procedure necessary equipment within the operating room. An infraumbilical incision was made subcutaneous tissues were divided the fascia was elevated and sharply incised at the umbilical stalk. The abdomen was entered atraumatically with and a 12 mm balloon trocar was placed. Insufflation was obtained. Inspection with the laparoscoped demonstrated no evidence of injury upon entry. The patient was then placed in Trendelenburg and the small bowel was swept out of the pelvis. Two 5 mm working ports were placed 1 infra umbilical in the other in the right upper quadrant. The sigmoid colon was observed and was followed down to the level of the mid rectum. The entirety of this colon felt soft and pliable there was no evidence of stricture externally. There were some flimsy adhesions to the sigmoid colon which were incised and the sigmoid rectum were gently retracted out of the pelvis. There was no obvious colonic tattoo visible. Unable to determine where his colonic stricture was I extended the infraumbilical incision to accommodate a hand port. The subcutaneous tissue was divided the fascia was incised and hand port was in place. I was able to palpate the entire remainder of the left colon from the splenic flexure down to the level of the distal rectum through the hand port and it was soft and pliable in its entirety. Next a colonoscopy was performed the scope was placed into the anus and advanced through the colon to the level of the ileocecal valve. The scope was then carefully withdrawn there was a benign appearing polyp in the right colon less than 1 cm which was not removed. There was what was most likely the prior anastomosis observed at 40 cm which was widely patent. There was some old tattoo here but the scope easily passed through this. I repeated the colonoscopy twice to verify that there was no stricture and this was confirmed. The abdomen was desufflated the midline incision was then closed in a running fashion using a 1. PDS. The subcutaneous tissues were reapproximated using 3 0 Vicryl suture followed by Monocryl to close this incision as well as the port incisions. Dermabond was used to seal the skin. The Ma catheter and ureteral stents were removed at the conclusion of the case. Complications: none Post-operative Condition: stable Disposition: Acute Care
--- NOTE | 2020-04-08 11:19 | SUR.OPER ---
Rajendra red blood in Ma bag at end of case approximately 25cc. Dr. Alanis aware, he discontinued the Ma and Stent at the end of the case.
[2020-04-08] MEDS: HYDROMORPHONE 2 MG INJ IV ×4 (11:36→11:56)
[2020-04-08] MEDS: LORazepam 2 MG/ML INJ 0.25 MG IV ×2 (11:43→11:57)
--- NOTE | 2020-04-08 12:06 | SUR.PHASEI ---
Patient able to relax and sleep for longer stretches.
--- NOTE | 2020-04-08 12:16 | SUR.PHASEI ---
Patient c/o need to relieve himself. Dr. Alanis aware. Up to bedside commode, one person assist.
[2020-04-08] MEDS: fentaNYL 100 MCG/2 ML INJ 50 MCG IV ×2 (12:28→12:44)
--- NOTE | 2020-04-08 12:42 | SUR.PHASEI ---
Report called to [facility].
[2020-04-08] MEDS: OXYCODONE IR 5 MG TABLET PO ×2 (12:57→18:40)
--- NOTE | 2020-04-08 13:13 | SUR.PHASEI ---
Suboxone given to Jeremiah in pharmacy
--- NOTE | 2020-04-08 13:31 | PC.NURSE ---
Day shift: Pt on unit at approx 1330 from PACU. He is A&Ox3. Oriented to room and call light. Call light in reach. Pt states he is very uncomfortable and per report from FRONT END DEVELOPER DESIGNER he has been having pain control issues.
--- NOTE | 2020-04-08 13:37 | SUR.PHASEI ---
1305 Dr. Hutchinson notified that patient's temperature is up to 100.2 and then rechecked at 99.6. No new orders. Patient was not able to pass gas and was able to transfer himself back to the stretcher, minimal assist. Patient transferred to the floor. Report to [facility]. Condition stable. IV saline locked. Belongings bag and black bag with patient.
[2020-04-08] MEDS: LACTATED RINGERS 1,000 ML 120 ML IV ×2 (14:13→22:38)
--- NOTE | 2020-04-08 14:14 | PC.NURSE ---
Day shift:' Verbal order for Pt's own med Suboxone from Dr Ricardo (Ok to give his morning dose now).
[2020-04-08] MEDS: BUPRENORPHINE/NALOXONE 8MG/2MG 1 TAB SL (14:40)
[2020-04-08] MEDS: KETOROLAC 30 MG/ML VIAL IV ×2 (17:22→23:55)
--- NOTE | 2020-04-08 17:57 | PM.OP.1 ---
Operative Date/Time/Diagnoses Date of procedure: 04/08/20 Time of procedure: 08:15 Pre-op diagnosis: 1. sigmoid anastomotic stricture Post-op diagnosis: same Procedure & Clinicians Procedure: 1. Cystoscopy and placement LEFT localizing ureteral stent. Same procedure as scheduled: No (Did not stent right side.) Indications: sigmoid anastomotic stricture. Surgeon: Umair Smith Click Yes if Unassisted: Yes Anesthesia Type: General Operative Notes Findings: Normal urethra. Coapted external sphincter. Prostate 3.5 cm length with mild lateral lobe hyperplasia. Bladder with very small bilateral ureteral orifices. Trace trabeculation. No stones, diverticuli or tumor. Closure Type: not applicable Specimen(s): none sent Estimated Blood Loss (mL): 0 Blood products transfused: none Tourniquet time (min): 0 Procedure in detail: The patient was positioned in supine and was administered general anesthesia. He was then repositioned in semi-lithotomy and the lower abdomen, groin and genitalia were prepped and draped in sterile fashion. The #25F pandoscope was then passed into the lower urinary tract with the findings as described above. An illuminating ureteral stent was then passed into the scope but could not be advanced into the left ureteral orifice due to relative stenosis of same. A 0.35 guide wire was then advanced into the left orifice and advanced proximally. The scope was then back loadde off the wire and a ureteral access sheath was then advanced over the wire to dilate the left UVJ. The access sheath was then backloaded off the wire and the panendoscope was front loaded onto the wire. The outer sheath of the localizing stent was then advanced over the wire, and the wire then back loaded out of the ureter, scope and sheath. The panendoscope was then backloaded off the localizing sheath. The inner stylet was then advanced into the localizing ureteral outer sheath and secured. The same challenges were encountered in attempting RIGHT side placement. Attempts were aborted. The scope was removed and a #16F mcallister catheter was then placed, balloon filled to 10cc and placed to gravity drainage. The localizing ureter stent was then secured to the mcallister catheter with op-site dressings. Complications: none Post-operative Condition: stable Disposition: PACU
--- NOTE | 2020-04-08 19:16 | PC.NURSE ---
Addendum entered by Dorothy Kilpatrick R.N. 04/08/20 22:12: Pt unable to void, bladder scanned, showed 328cc MD notified, order to I/O cath received. Pt attempted to void, voided 200cc zohreh colored urine. Pt refused I/O cath @ this time. Pt agreed to drink fluids, will reassess. Call light w/in reach. Bed alarm on for pt safety Continue w/plan of care. Original Note: Pt Spo2 97% RA. Lungs clear, Abdomen w/ vertical incision @ two lap sites CDI IVF LR infusing @120cc/hr into left hand via pump w/o incidence. Pt unable to void at this time. Bladder scan 249cc Stable post op course. Call light w/in reach, bed alarm on for pt safety. Pt calls appropriately for needs.
[2020-04-09] VITALS (14 sets, daily range): BP systolic 122–154; BP diastolic 49–106; PULSE 85–95; RESP 15–18; TEMP 36.8–37.5; O2SAT 96–99
[2020-04-09] MEDS: KETOROLAC 30 MG/ML VIAL IV (06:15)
[2020-04-09] MEDS: LACTATED RINGERS 1,000 ML 120 ML IV ×3 (06:17→22:52)
[2020-04-09 06:25] LABS: Add Manual Diff / Slide Review NO; Basophils Absolute Auto 0 /uL (0-100); Basophils Percent Auto 0.2 % (0-2); Eosinophils Absolute Auto 0 /uL (0-450); Hematocrit 44.4 % (41-53); Hemoglobin 15.1 g/dL (13.5-17.5); Lymphocytes Absolute Auto 1100 /uL (1100-4500); Lymphocytes Percent Auto 7.9 % (25-40); Mean Corpuscular HGB Conc 34.1 % (30-36); Mean Corpuscular Hemoglobin 31.3 PG (26-34); Mean Corpuscular Volume 91.8 fL (80-100); Monocytes Absolute Auto 1200 /uL (0-900); Monocytes Percent Auto 8.8 % (3-14); Neutrophils Absolute Auto 11600 /uL (1500-7000); Neutrophils Percent Auto 83.1 % (50-75); Platelet Count 205 X10^3/uL (150-400); Red Blood Cell Count 4.84 X10^6/uL (4.5-5.9); Red Cell Distribution Width 13.4 % (11.6-14.8)
[2020-04-09 06:29] LABS: BUN Creatinine Ratio 11.6 (6-22); Blood Urea Nitrogen 26 mg/dL (9-20); Calcium 8.7 mg/dL (8.4-10.2); Carbon Dioxide 27 mmol/L (22-32); Chloride 95 mmol/L (98-107); Estimated Glomerular Filt Rate 32.1 mL/min (>60); Glucose 193 mg/dL (70-100); HEMOLYSIS < 15 (0-50); Potassium 3.9 mmol/L (3.4-5.1); Sodium 130 mmol/L (137-145)
[2020-04-09] MEDS: PANTOPRAZOLE 40 MG TABLET PO (07:51)
[2020-04-09] MEDS: lisinopriL 10 MG TABLET PO (07:51)
[2020-04-09] MEDS: ATORVASTATIN 20 MG TABLET PO (07:53)
[2020-04-09] MEDS: BUPRENORPHINE/NALOXONE 8MG/2MG 1 TAB SL ×2 (07:53→21:45)
[2020-04-09] MEDS: HEPARIN 5,000 UNIT/ML VIAL 5000 UNIT SUBCUT ×2 (07:54→20:21)
[2020-04-09] MEDS: buPROPion XL 150 MG TAB 300 MG PO (07:54)
[2020-04-09] MEDS: hydroCHLOROthiazide 25 MG TABLET PO (07:54)
[2020-04-09] MEDS: SODIUM CHLORIDE 0.9% 500 ML 1000 ML IV (08:41)
--- NOTE | 2020-04-09 12:41 | PM.PNPO.1 ---
Subjective Subjective Date Patient Seen: 04/09/20 Time Patient Seen: 12:41 Interval history: Acute urinary retention Did pass some blood clots in urine and did not ultimately require catheterization. Mild abdominal pain no nausea or vomiting is continuing to pass idania. Exam Vital Signs (past 8 hours): - 04/09/20 04:45 04/09/20 07:35 04/09/20 07:51 Temperature 98.4 F 98.8 F Pulse Rate 95 H 95 H 95 H Respiratory Rate 18 16 Blood Pressure 124/69 133/95 H 133/95 H Pulse Oximetry 98 97 04/09/20 09:26 04/09/20 11:40 Temperature 98.5 F Pulse Rate 94 H Respiratory Rate 15 Blood Pressure 122/49 L Pulse Oximetry 97 97 Oxygen Delivery Method Room Air Oxygen Flow Rate 0 Narrative Exam Narrative: Gen-Adult male alert and oriented Abdomen-mildly distended incision CDI appropirately tender Objective Labs Result Diagrams: 04/09/20 05:55 04/09/20 05:55 Labs: Laboratory Results - last 24 hr 04/09/20 04/09/20 05:55 05:55 WBC 14.0 H RBC 4.84 Hgb 15.1 Hct 44.4 MCV 91.8 MCH 31.3 MCHC 34.1 RDW 13.4 Plt Count 205 Neut % (Auto) 83.1 H Lymph % (Auto) 7.9 L [place] % (Auto) 8.8 Eos % (Auto) 0.0 L Baso % (Auto) 0.2 Neut # (Auto) 78738 H Lymph # (Auto) 1100 [place] # (Auto) 1200 H Eos # (Auto) 0 Baso # (Auto) 0 Sodium 130 L Potassium 3.9 Chloride 95 L Carbon Dioxide 27 BUN 26 H Creatinine 2.25 H Estimated GFR 32.1 L BUN/Creatinine Ratio 11.6 Glucose 193 H Calcium 8.7 Assessment & Plan Post-op Postoperative Procedures: Procedures Operation Date: 02/26/20 07:45 <No data on this case meets the specified criteria> Operation Date: 04/08/20 07:45 Actual Procedures Side Surgeon p Diagnostic laparoscopy and Colonoscopy Collins Alanis MD s Cystoscopy / placement left localizing ureteral stents Umair Smith MD Postoperative status narrative: 40M POD 1 SP diagnostic laparoscopy for colonic stricture. #[place] and urinary retention. Cr 2.2 from baseline of 1.1. Ma and left ureteral stent were removed yesterday had hematuria that has now resolved and is urinating spontaneously. 1L bolus and recheck BMP this afternoon -Regular diet -OOB ambulate -Likely discharge home tomorrow if CAR[place] resolving. -SCDs and subcutaneous heparin
[2020-04-09 13:22] LABS: BUN Creatinine Ratio 12.6 (6-22); Blood Urea Nitrogen 27 mg/dL (9-20); Calcium 8.7 mg/dL (8.4-10.2); Carbon Dioxide 25 mmol/L (22-32); Chloride 97 mmol/L (98-107); Estimated Glomerular Filt Rate 33.9 mL/min (>60); Glucose 194 mg/dL (70-100); HEMOLYSIS < 15 (0-50); Potassium 3.8 mmol/L (3.4-5.1); Sodium 133 mmol/L (137-145)
--- NOTE | 2020-04-09 13:36 | CM.DANOTE ---
DCP: Case received, EMR reviewed and met with patient. Introduced self and role. Was able to meet with patient in his room to obtain information regarding his baseline activity, and living situation. Prior to meeting with patient, he had been ambulating down the hallway independently. DCP assessment completed with information currently available. Patient is a 40 year old male who admitted yesterday morning to the care of the surgical team. PCP: Dr. Mosqueda at [facility] in [facility]. Payer: confirmed: [facility]. Patient came to the hospital for a surgical procedure. He had a sigmoidectomy, and removal of ureteral stents. According to recent notes from Dr. Alanis, patient had catheter removed yesterday, and has been passing some clots. He has had history of urinary retention. Met with patient in his room. He has been ambulating independently. 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 Confirmed that his primary care provider is at the [facility] in [facility]. He resides with his spouse, Magda, in [place]. P: DCP to continue to follow. According to notes, patient could be discharged home tomorrow. Aurea De Paz RN/Double Needle Stitcher
[2020-04-09] MEDS: ONDANSETRON 4 MG/2 ML INJ IV ×2 (14:44→20:21)
[2020-04-09] MEDS: HYDROMORPHONE 1 MG INJ 0.5 MG IV ×2 (17:26→22:50)
--- NOTE | 2020-04-09 19:07 | PC.NURSE ---
Addendum entered by Dorothy Kilpatrick R.N. 04/09/20 22:12: [id number] -- Pt has had nausea on & off all evening. Med @ 2020 w/zofran w/ better relief this time. IVF continue as per orders. Satifactory post op course. Call light w/in reach, pt calls appropriately for needs. Continue w/plan of care. Original Note: [id number] - - Pt had intense nausea & discomfortt at start of evening. Unable to give zofran @ that time. Med w/ Dilaudid 0.5mg as per orders w/good relief. Pt resting at this time. LR infusing into the left hand via pump w/o incidence. Surgical incision & lap sites CDI Pt plans to D/C by 0800 04/10 Call light w/in reach, pt calls appropriately for needs.
[2020-04-10] MEDS: ONDANSETRON 4 MG/2 ML INJ IV (01:58)
[2020-04-10 03:00] VITALS: O2SAT 93
[2020-04-10 05:00] VITALS: BP 145/93; PULSE 90; RESP 16; TEMP 37.4; O2SAT 93
[2020-04-10 06:03] LABS: Add Manual Diff / Slide Review NO; Basophils Absolute Auto 0 /uL (0-100); Basophils Percent Auto 0.2 % (0-2); Eosinophils Absolute Auto 0 /uL (0-450); Hematocrit 43.1 % (41-53); Hemoglobin 15.1 g/dL (13.5-17.5); Lymphocytes Absolute Auto 1400 /uL (1100-4500); Lymphocytes Percent Auto 10.6 % (25-40); Mean Corpuscular Hemoglobin 31.9 PG (26-34); Mean Corpuscular Volume 91.1 fL (80-100); Monocytes Absolute Auto 900 /uL (0-900); Neutrophils Absolute Auto 10600 /uL (1500-7000); Neutrophils Percent Auto 82.2 % (50-75); Platelet Count 182 X10^3/uL (150-400); Red Blood Cell Count 4.73 X10^6/uL (4.5-5.9); Red Cell Distribution Width 13.1 % (11.6-14.8); White Blood Cell Count 12.9 X10^3/uL (4.5-11.0)
[2020-04-10 06:19] LABS: BUN Creatinine Ratio 15.4 (6-22); Blood Urea Nitrogen 22 mg/dL (9-20); Calcium 8.7 mg/dL (8.4-10.2); Carbon Dioxide 29 mmol/L (22-32); Chloride 97 mmol/L (98-107); Estimated Glomerular Filt Rate 54.2 mL/min (>60); Glucose 153 mg/dL (70-100); HEMOLYSIS < 15 (0-50); Potassium 3.4 mmol/L (3.4-5.1); Sodium 134 mmol/L (137-145)
[2020-04-10 08:00] VITALS: O2SAT 96
[2020-04-10 08:06] VITALS: BP 151/96; PULSE 73; RESP 17; TEMP 37.1; O2SAT 96
--- NOTE | 2020-04-10 08:18 | PM.DS.1 ---
History of Present Illness History of Present Illness Chief complaint: [id number] SIGMOIDECTOMY *URETERAL STENTS Narrative: Marcos is a 40-year-old man who underwent a laparoscopic left hemicolectomy with an end and anastomosis May 2019. He had the operation for a benign possibly ischemic stricture. Following his surgery he had anastomotic leak was managed conservatively but unfortunately developed 2nd stricture at the anastomosis. He has been quite symptomatic from this suffering severe for for function limiting constipation. I performed a colonoscopy on him several months ago which I could barely pass the scope through the anastomotic stricture biopsy of this demonstrates benign disease. He is here today for a laparoscopic colectomy risks, resection of his stricture. He is in his usual state of health there been no interval changes. Discharge Providers Provider Date of admission: 04/08/20 06:34 Discharge Date: 04/10/20 Primary care physician: Chriss Snow MD Consults: 04/08/20 07:28 Consult to Respiratory Therapy Evaluate & Treat Comment: Physician Instructions: Evaluate and treat Discharge provider: Collins Alanis MD Summary Hospital Course Discharge Diagnosis: Status post diagnostic laparoscopy Acute kidney injury Hospital Course: Patient was taken to the operating room 04/08 for intended laparoscopic colon resection of his anastomotic stricture with left ureteral stenting.. Diagnostic laparoscopy demonstrated no evidence of significant stricture in addition a intraoperative colonoscopy was performed which also demonstrated no further colonic stricture. No colon resection was performed. I suspect that his stricture had been unintentionally dilated during his colonoscopy several months ago. Postoperatively his course was remarkable for acute kidney injury as he had some bleeding from the ureteral stenting that caused the urinary outlet obstruction. Once his hematuria resolved he was hydrated his creatinine downtrended appropriately. On the date of discharge he is feeling well, he is urinating normally ambulatory pain is well controlled he is tolerating a regular diet having bowel movements and passing flatus. Status at Discharge Cognitive/behavioral status at discharge: oriented Functional status at discharge: independent ambulation Time Spent with Patient Time spent: Greater than 30 minutes Exam Vital Signs (past 8 hours): - 04/10/20 03:00 04/10/20 05:00 04/10/20 08:06 Temperature 99.4 F 98.7 F Pulse Rate 90 73 Respiratory Rate 16 17 Blood Pressure 145/93 H 151/96 H Pulse Oximetry 93 93 96 Oxygen Delivery Method Room Air Oxygen Flow Rate 0 Narrative Exam Narrative: General adult male alert oriented no acute distress Chest nonlabored respiration Abdomen soft nondistended incision midline clean dry intact. Mild bruising along the of midline incision. Objective Labs Result Diagrams: 04/10/20 05:35 04/10/20 05:35 Labs: Laboratory Results - last 24 hr 04/09/20 04/10/20 04/10/20 13:01 05:35 05:35 WBC 12.9 H RBC 4.73 Hgb 15.1 Hct 43.1 MCV 91.1 MCH 31.9 MCHC 35.0 RDW 13.1 Plt Count 182 Neut % (Auto) 82.2 H Lymph % (Auto) 10.6 L [place] % (Auto) 7.0 Eos % (Auto) 0.0 L Baso % (Auto) 0.2 Neut # (Auto) 10766 H Lymph # (Auto) 1400 [place] # (Auto) 900 Eos # (Auto) 0 Baso # (Auto) 0 Sodium 133 L 134 L Potassium 3.8 3.4 Chloride 97 L 97 L Carbon Dioxide 25 29 BUN 27 H 22 H Creatinine 2.15 H 1.43 H Estimated GFR 33.9 L 54.2 L BUN/Creatinine Ratio 12.6 15.4 Glucose 194 H 153 H Calcium 8.7 8.7 Discharge Plan Discharge Plan Patient Disposition: Home Discharge orders & Medications Prescriptions: New docusate sodium [Colace] 100 mg capsule 100 mg PO BID Qty: 30 RF: 0 oxycodone 5 mg tablet 5 mg PO Q6H PRN (Reason: pain) Qty: 40 RF: 0 Continued neomycin 500 mg tablet 1 gram PO TID 0 Days Qty: 6 RF: 0 erythromycin 500 mg tablet 1,000 mg PO TID Qty: 6 RF: 0 hydrochlorothiazide 25 mg Tablet 25 mg PO DAILY RF: 0 bupropion HCl 300 mg Tablet Extended Release 24 Hr 300 mg PO QAM RF: 0 buprenorphine-naloxone [Suboxone] 8-2 mg Film 1 film BUCCAL BID RF: 0 testosterone cypionate 1 dose IM DIRECTED RF: 0 pantoprazole 40 mg Tablet,Delayed Release (Dr/Ec) 40 mg PO DAILY RF: 0 atorvastatin 20 mg Tablet 20 mg PO DAILY RF: 0 lisinopril 10 mg Tablet 10 mg PO DAILY RF: 0 Follow up/Referrals: Collins Alanis MD [Physician] - Chriss Snow MD [Primary Care Provider] - Diet/Activity/Treatments Diet: Regular Activity: No lifting >20 lbs x 4 weeks. Walking only for exercise for [address] while taking narcotics. Skin/Wound/Dressing Care Report to your healthcare provider any signs of infection, such as:: chills, fever, increased pain and unusual drainage Visit Report/Discharge Packet Instructions: DI for Laparoscopy Discharge Data Primary Care Provider: Chriss Snow
--- NOTE | 2020-04-10 08:58 | PC.NURSE ---
Pt is dressed and ready for discharge home. Pt states he is feeling a bit nauseated this morning but declines offer of meds. Pt's home med has been returned to him. IV removed. Went over d/c instructions with Pt, discussed d/c meds, time of last dose, encouraged fluid intake to prevent dehydration and encouraged Pt to monitor his urinary intake to ensure that his input and output match. Pt has a follow appt. scheduled with Dr. Alanis. Pt denies further questions and was taken out via w/c by IMPREGNATOR HELPER to POV and all belongings.
== END 2020-04-10 09:02 | disposition home or self-care (01) ==
LOC: ICU 04-10 09:08 → OR 04-10 09:08 → AC 04-10 09:11 → OR 04-10 09:11
PROVIDERS: Specialist; Admitting Provider Surgery; PCP Emergency Medicine Emergency Medical Services; Referring Provider Surgery; Visit Provider Surgery
PROC: 0DTE0ZZ Resection of Large Intestine, Open Approach (ICD-10-PCS; CPT 49320; principal; 2020-04-08 07:45)
PROC: (CPT 52332; 2020-04-08 07:45)
DX: K91.89 Other postprocedural complications and disorders of digestive system (principal); R33.9 Retention of urine, unspecified; N17.9 Acute kidney failure, unspecified; G47.30 Sleep apnea, unspecified; I10 Essential (primary) hypertension; E78.5 Hyperlipidemia, unspecified; K21.9 Gastro-esophageal reflux disease without esophagitis; K63.5 Polyp of colon; Z11.59 Encounter for screening for other viral diseases
CPT/HCPCS: 49320; 52332; 45378; 36415; 80048; 85025; G0378; J0330; J1100; J1170; J1644; J1885; J2060; J2250; J2405; J2543; J2704; J3010

== ENCOUNTER 2024-05-23 09:49 | Emergency (ER) | payer BC, OTHER, SELFPAY ==
[2020-04-08 13:59] VITALS: BMI 30.3
[2024-05-23] VITALS (8 sets, daily range): BP systolic 142–193; BP diastolic 89–119; PULSE 103–123; RESP 10–23; TEMP 36.7; O2SAT 95–98; BMI 28.0
--- NOTE | 2024-05-23 10:02 | EKG_ITS ---
[address] [id number] [address] [address] Test Date: 2024-05-23 Pat Name: Marcos Ventura Department: Room: Gender: Male Smocker: KENDALL : 1980 Requested By: Order Number: [id number] Reading MD: Chan Lazar Measurements Intervals [place] Rate: 119 P: 27 FL: 150 QRS: 3 QRSD: 90 T: 34 QT: 310 QTc: 436 Interpretive Statements Sinus tachycardia Electronically Signed On 05-23-2024 19:43:16 PDT by Chan Lazar
--- NOTE | 2024-05-23 10:03 | ED.GENADULT ---
HPI - General Adult General Chief complaint: Abdominal Pain Stated complaint: sharp stomach pain intestines removed Time Seen by Provider: 05/23/24 09:57 Source: patient Mode of arrival: Ambulatory Limitations: no limitations History of Present Illness HPI narrative: 44-year-old male. Has had 2 prior abdominal surgeries secondary to bowel obstructions. The last 1 being approximately 1 year ago. Is here for evaluation of a couple weeks of progressively worsening abdominal discomfort and bloating. States things got worse this morning. Denies chest pain. No vomiting. Did have a small bowel movement this morning that did not change any of his abdominal pain. No urinary symptoms. No fevers. Describes the pain as a sharp pain in the left side of his abdomen. Related Data Home Medications Medication Instructions Recorded Confirmed buprenorphine 8 mg-naloxone 2 mg 1 film buccal BID 05/29/19 04/23/20 sublingual film (Suboxone) bupropion HCl 300 mg 24 hr tablet, 300 mg PO QAM 05/29/19 04/23/20 extended release hydrochlorothiazide 25 mg tablet 25 mg PO DAILY 05/29/19 04/23/20 pantoprazole 40 mg tablet,delayed 40 mg PO DAILY 05/29/19 04/23/20 release testosterone cypionate 1 dose IM DIRECTED 05/29/19 04/23/20 atorvastatin 20 mg tablet 20 mg PO DAILY 05/30/19 04/23/20 lisinopril 10 mg tablet 10 mg PO DAILY 12/31/19 04/23/20 Previous Rx's Medication Instructions Recorded erythromycin 500 mg tablet 1,000 mg (2 x 500 mg) PO TID #6 04/03/20 tabs neomycin 500 mg tablet 1 gram (2 x 500 mg) PO TID 3 doses 04/03/20 #6 tabs docusate sodium 100 mg capsule 100 mg PO BID #30 caps 04/10/20 (Colace) oxycodone 5 mg tablet 5 mg PO Q6H PRN pain #40 tabs 04/10/20 Allergies Allergy/AdvReac Type Severity Reaction Status Date / Time lorazepam [From Ativan] AdvReac Intermediate Memory Verified 04/23/20 11:03 issues Review of Systems Review of Systems ROS Unobtainable: All systems reviewed & are unremarkable except as noted in HPI and below Patient History Medical History (Updated 05/23/24 @ 11:47 by Guy Garcia DO) HLD (hyperlipidemia) Bowel obstruction Gouty arthritis of left great toe Gastric reflux Sleep apnea HTN (hypertension) Surgical History S/P colectomy (06/05/19) Hx of hand surgery Hx of vasectomy Hx of knee surgery Hx of shoulder surgery Family History Grandfather Diabetes mellitus Heart disease Grandmother Diabetes mellitus Stroke Social History marital status: household members: spouse occupational status: employed Smoking Status: Former smoker alcohol intake: current substance use type: does not use Smoking Status: Former smoker alcohol intake frequency: 0-2 drinks per day Substance Use Type: does not use Exam Initial Vital Signs Initial Vital Signs: Vital Signs Pulse Rate 120 H 05/23/24 09:53 Blood Pressure 177/112 H 05/23/24 09:53 Pulse Oximetry 98 05/23/24 09:53 Const General: cooperative and No ill appearing HENMT Head: normal to inspection and normocephalic Resp Effort & Inspection: normal respiratory effort Auscultation: clear to auscultation bilaterally Cardio Rate: tachycardic Rhythm: regular rhythm GI Inspection: normal to inspection and non-distended Palpation: soft, No firm, No guarding and tender Skin General: no rashes or lesions noted Neuro General: patient alert, patient awake and moves all extremities Extrem General: capillary refill normal Course Orders Ordered: ED Orders 05/23/24 10:00 Complete Blood Count AUTO DIFF Stat Comprehensive Metabolic Panel Stat Lipase Stat 05/23/24 10:02 CT abdomen pelvis w con Stat EKG-12 Lead Stat Vital Signs Vital signs: Vital Signs - 8 hr 05/23/24 09:53 05/23/24 09:53 05/23/24 10:00 Temperature Pulse Rate 120 H 123 H Respiratory Rate 22 Blood Pressure 177/112 H Pulse Oximetry 98 98 Oxygen Delivery Method 05/23/24 10:00 05/23/24 10:03 05/23/24 10:30 Temperature 98.1 F Pulse Rate 120 H 120 H Respiratory Rate 23 10 L Blood Pressure 182/119 H 182/119 H Pulse Oximetry 97 97 Oxygen Delivery Method Room Air 05/23/24 10:37 05/23/24 10:37 05/23/24 11:00 Temperature Pulse Rate 118 H Respiratory Rate 22 Blood Pressure 193/104 H 159/96 H Pulse Oximetry 97 Oxygen Delivery Method 05/23/24 11:00 05/23/24 11:30 05/23/24 11:30 Temperature Pulse Rate 109 H 103 H Respiratory Rate 14 10 L Blood Pressure 143/89 H Pulse Oximetry 96 95 Oxygen Delivery Method Medical Decision Making Lab Data Lab results reviewed: Yes I reviewed the patient's lab results. 05/23/24 10:00 05/23/24 10:00 Labs: Lab Results 05/23/24 Range/Units 10:00 WBC 6.9 (4.5-11.0) X10^3/uL RBC 5.52 (4.5-5.9) X10^6/uL Hgb 17.2 (13.5-17.5) g/dL Hct 51.2 (41-53) % MCV 92.7 (80-100) fL MCH 31.2 (26-34) PG MCHC 33.6 (30-36) % RDW 15.9 H (11.6-14.8) % Plt Count 258 (150-400) X10^3/uL Neut % (Auto) 55.5 (50-75) % Lymph % (Auto) 32.5 (25-40) % [place] % (Auto) 10.0 (3-14) % Eos % (Auto) 1.2 L (2-4) % Baso % (Auto) 0.8 (0-2) % Neut # (Auto) 3800 (9465-6683) /uL Lymph # (Auto) 2300 (9997-4629) /uL [place] # (Auto) 700 (0-900) /uL Eos # (Auto) 100 (0-450) /uL Baso # (Auto) 100 (0-100) /uL Sodium 138 (137-145) mmol/L Potassium 4.6 (3.4-5.1) mmol/L Chloride 100 (98-107) mmol/L Carbon Dioxide 28 (22-32) mmol/L BUN 14 (9-20) mg/dL Creatinine 1.03 (0.66-1.25) mg/dL Estimated GFR > 60 (>60) mL/min BUN/Creatinine Ratio 13.6 (6-22) Glucose 140 H (70-100) mg/dL Calcium 9.0 (8.4-10.2) mg/dL Total Bilirubin 0.6 (0.2-1.3) mg/dL AST 37 (17-59) IU/L ALT 27 (<50) IU/L Alkaline Phosphatase 82 (38-126) U/L Total Protein 8.0 (6.3-8.2) g/dL Albumin 4.9 (3.5-5.0) g/dL Globulin 3.1 (1.7-4.1) g/dL Albumin/Globulin Ratio 1.6 (1.0-2.8) Lipase 79 (23-300) U/L Imaging Data CT scan - abdomen/pelvis: Radiologist's Impression: PROCEDURE: CT ABDOMEN PELVIS W CON INDICATIONS: History of bowel obstructions with abdominal pain TECHNIQUE: After the administration of intravenous contrast, axial sections acquired from the lung bases to the pubic symphysis. Coronal and sagittal reformats were performed. For radiation dose reduction, the following was used: automated exposure control, adjustment of mA and/or kV according to patient size. COMPARISON: [facility], CT, CT ABDOMEN PELVIS W CON, 06/13/2019, 13:13. FINDINGS: Image quality: Diagnostic. Lower Chest: No significant findings. ABDOMEN: Liver: No solid mass. Gallbladder: No radiopaque gallstones or wall thickening. Biliary ducts: No biliary dilation. Pancreas: No ductal dilation. Spleen: Size is within normal limits. Adrenal Glands: No adrenal nodules. Kidneys and Ureters: No hydronephrosis. No solid mass. No complex renal cystic lesion which requires follow up. Stomach and Bowel: Normal colonic caliber, without significant wall thickening. No bowel obstruction. Moderate fecal load. Peritoneum: No abnormal intraperitoneal fluid. No free air. Ventral Wall: No significant ventral hernia. Abdominal Nodes: No retroperitoneal or mesenteric adenopathy by size criteria. Vessels: Aorta and inferior vena cava are normal in size. PELVIS: Pelvic Organs: Unremarkable. Bladder: No bladder wall thickening, accounting for underdistention. Pelvic Nodes: No enlarged lymph nodes. Miscellaneous: No inguinal hernias are seen. Bones: No aggressive osseous abnormality. IMPRESSION: No acute abdominal process. No evidence of bowel obstruction. Moderate fecal load. ECG Data Attestation: I personally reviewed and interpreted this ECG as follows: Interpretation: Sinus tachycardia Ventricular rate 119 Normal axis Normal QRS Normal QTC No ST T wave changes MDM Narrative Medical decision making narrative: CT scan shows no acute pathology. No skin changes over the area concerning for zoster. He urinated without any issues. No testicular pain. No signs of infection. No signs of surgical pathology. We did discuss that he sometimes has very infrequent bowel movements and so having a discussion with him will start on a good bowel regimen for the next couple days to include laxatives. He was given return precautions. He expressed understanding and agreement. Discharge Plan Departure Patient Disposition: Home Clinical Impression: Abdominal pain Instructions: DI for Abdominal Pain-Adult Activity Restrictions/Additional Instructions: Recommend that you start on a good bowel regimen to include a laxative of your choice. Take this for the next couple days. If your symptoms worsen or you develop new symptoms please return to the emergency department for further evaluation Prescriptions: No Action neomycin 500 mg tablet 1 gram PO TID 0 Days Qty: 6 0RF Rx Instructions: administer at 2 PM, 4 PM, and 10 PM the day prior to surgery erythromycin 500 mg tablet 1,000 mg PO TID Qty: 6 0RF Rx Instructions: ADMINISTER AT 2PM, 4PM, 10PM DAY PRIOR TO SURGERY hydrochlorothiazide 25 mg Tablet 25 mg PO DAILY bupropion HCl 300 mg Tablet Extended Release 24 Hr 300 mg PO QAM buprenorphine-naloxone [Suboxone] 8-2 mg Film 1 film BUCCAL BID Patient Comments: Takes in the morning and at noon testosterone cypionate 1 dose IM DIRECTED Patient Comments: every two weeks pantoprazole 40 mg Tablet,Delayed Release (Dr/Ec) 40 mg PO DAILY atorvastatin 20 mg Tablet 20 mg PO DAILY lisinopril 10 mg Tablet 10 mg PO DAILY docusate sodium [Colace] 100 mg capsule 100 mg PO BID Qty: 30 0RF oxycodone 5 mg tablet 5 mg PO Q6H PRN (Reason: pain) Qty: 40 0RF Referrals: Chriss Snow MD [Primary Care Provider] - Stand Alone Forms: Patient Portal/API
[2024-05-23 10:08] LABS: Add Manual Diff / Slide Review NO; Basophils Absolute Auto 100 /uL (0-100); Basophils Percent Auto 0.8 % (0-2); Eosinophils Absolute Auto 100 /uL (0-450); Eosinophils Percent Auto 1.2 % (2-4); Hematocrit 51.2 % (41-53); Hemoglobin 17.2 g/dL (13.5-17.5); Lymphocytes Absolute Auto 2300 /uL (1100-4500); Lymphocytes Percent Auto 32.5 % (25-40); Mean Corpuscular HGB Conc 33.6 % (30-36); Mean Corpuscular Hemoglobin 31.2 PG (26-34); Mean Corpuscular Volume 92.7 fL (80-100); Monocytes Absolute Auto 700 /uL (0-900); Neutrophils Absolute Auto 3800 /uL (1500-7000); Neutrophils Percent Auto 55.5 % (50-75); Platelet Count 258 X10^3/uL (150-400); Red Blood Cell Count 5.52 X10^6/uL (4.5-5.9); Red Cell Distribution Width 15.9 % (11.6-14.8); White Blood Cell Count 6.9 X10^3/uL (4.5-11.0)
[2024-05-23 10:19] LABS: Alanine Aminotransferase 27 IU/L (<50); Albumin 4.9 g/dL (3.5-5.0); Albumin Globulin Ratio 1.6 (1.0-2.8); Alkaline Phosphatase 82 U/L (38-126); Aspartate Aminotransferase 37 IU/L (17-59); BUN Creatinine Ratio 13.6 (6-22); Bilirubin Total 0.6 mg/dL (0.2-1.3); Blood Urea Nitrogen 14 mg/dL (9-20); Carbon Dioxide 28 mmol/L (22-32); Chloride 100 mmol/L (98-107); Estimated Glomerular Filt Rate > 60 mL/min (>60); Globulin 3.1 g/dL (1.7-4.1); Glucose 140 mg/dL (70-100); HEMOLYSIS < 15 (0-50); Lipase 79 U/L (23-300); Potassium 4.6 mmol/L (3.4-5.1); Sodium 138 mmol/L (137-145)
== END 2024-05-23 11:54 | disposition home or self-care (01) ==
PROVIDERS: Emergency Provider Emergency Medicine; PCP Emergency Medicine Emergency Medical Services
DX: R10.9 Unspecified abdominal pain (principal); R00.0 Tachycardia, unspecified; Z79.899 Other long term (current) drug therapy
CPT/HCPCS: 36415; 74177; 80053; 83690; 85025; 93005; 99283; 99284; Q9967